=== PATIENT | female | born 1930 | race Caucasian/White ===

== ENCOUNTER → 2016-08-18 | Outpatient (CLI) | payer MEDICARE, OTHER ==
[~2016-08-18] MED LIST: ASPI325T PO; B COTAB7 PO; CALCTAB75 PO; EZET10 PO; FISHCAP4 PO; GNP120TA3 PO; MELA10CA PO; OSTETAB7 PO; OXYC1SOL5 PO; RANI150T PO; STOO100T PO; SYSTSOL EACH EYE; TAB-TAB PO; Z.0.WALKERFRONT; [UNRECOGNIZED DRUG - CODE] TOP
[2016-08-18 15:39] LABS: HEMATOCRIT 41.6 % (35.0-46.0); MEAN CELL VOLUME 88.2 FL (80.0-100.0); MEAN CORPUSCULAR HEMOGLOBIN 29.8 PG (27.0-34.0); MEAN CORPUSCULAR HGB CONC 33.8 % (32.0-36.0); PLATELET COUNT 133 TH/MM3 (150-450); RED BLOOD COUNT 4.72 MIL/MM3 (4.00-5.30); RED CELL DISTRIBUTION WIDTH 14.9 % (11.6-17.2); REVIEW FLAG FINAL; WHITE BLOOD COUNT 5.4 TH/MM3 (4.0-11.0)
[2016-08-18 15:47] LABS: ALT (GPT) 21 U/L (10-53); ANION GAP 8 MEQ/L (5-15); AST (GOT) 13 U/L (15-37); BICARBONATE 27.7 MEQ/L (21.0-32.0); BLOOD UREA NITROGEN 16 MG/DL (7-18); CHLORIDE 108 MEQ/L (98-107); GLOMERULAR FILTRATION RATE 69 ML/MIN (>89); GLUCOSE,FASTING 90 MG/DL (74-99); POTASSIUM 4.4 MEQ/L (3.5-5.1); SODIUM (NA) 144 MEQ/L (136-145)
[2016-08-18 15:57] LABS: ALKALINE PHOSPHATASE 44 U/L (45-117); LDL CHOLESTEROL 59 MG/DL (0-99); TOTAL BILIRUBIN ADULT 0.4 MG/DL (0.2-1.0)
== END ==
LOC: PLAB 12:22
PROVIDERS: ATTEND Family Medicine
DX: E78.5 Hyperlipidemia, unspecified (principal); K21.9 Gastro-esophageal reflux disease without esophagitis; M15.8 Other polyosteoarthritis; G60.9 Hereditary and idiopathic neuropathy, unspecified; D69.6 Thrombocytopenia, unspecified; Z96.651 Presence of right artificial knee joint
CPT/HCPCS: 36415; 80053; 80061; 84443; 85027

== ENCOUNTER → 2016-09-24 | Outpatient (CLI) | payer MEDICARE, OTHER ==
[2016-09-24 16:56] LABS: FREE T4 1.17 NG/DL (0.76-1.46)
== END ==
LOC: PLAB 12:39
DX: E04.2 Nontoxic multinodular goiter (principal)
CPT/HCPCS: 36415; 84439; 84443

== ENCOUNTER → 2016-12-24 | Outpatient (CLI) | payer MEDICARE, OTHER ==
[2016-12-24 13:34] LABS: HEMATOCRIT 44.8 % (35.0-46.0); MEAN CELL VOLUME 91.9 FL (80.0-100.0); MEAN CORPUSCULAR HEMOGLOBIN 30.7 PG (27.0-34.0); MEAN CORPUSCULAR HGB CONC 33.4 % (32.0-36.0); PLATELET COUNT 148 TH/MM3 (150-450); RED BLOOD COUNT 4.87 MIL/MM3 (4.00-5.30); RED CELL DISTRIBUTION WIDTH 14.5 % (11.6-17.2); REVIEW FLAG FINAL; WHITE BLOOD COUNT 5.5 TH/MM3 (4.0-11.0)
[2016-12-24 14:03] LABS: ANION GAP 9 MEQ/L (5-15); AST (GOT) 21 U/L (15-37); BICARBONATE 28.2 MEQ/L (21.0-32.0); BLOOD UREA NITROGEN 15 MG/DL (7-18); CHLORIDE 107 MEQ/L (98-107); GLOMERULAR FILTRATION RATE 67 ML/MIN (>89); GLUCOSE,FASTING 91 MG/DL (74-99); POTASSIUM 4.7 MEQ/L (3.5-5.1); SODIUM (NA) 144 MEQ/L (136-145)
[2016-12-24 14:16] LABS: ALKALINE PHOSPHATASE 49 U/L (45-117); ALT (GPT) 18 U/L (10-53); HDL CHOLESTEROL 51.2 MG/DL (40.0-60.0); LDL CHOLESTEROL 68 MG/DL (0-99); TOTAL BILIRUBIN ADULT 0.5 MG/DL (0.2-1.0)
== END ==
LOC: PLAB 11:06
PROVIDERS: ATTEND Family Medicine
DX: E78.5 Hyperlipidemia, unspecified (principal); K21.9 Gastro-esophageal reflux disease without esophagitis; M15.8 Other polyosteoarthritis; G60.9 Hereditary and idiopathic neuropathy, unspecified; D69.6 Thrombocytopenia, unspecified; Z68.34 Body mass index [BMI] 34.0-34.9, adult
CPT/HCPCS: 36415; 80053; 80061; 84443; 85027

== ENCOUNTER → 2017-05-07 | Outpatient (CLI) | payer MEDICARE, OTHER ==
[2017-05-07 16:29] LABS: HEMATOCRIT 42.9 % (35.0-46.0); MEAN CELL VOLUME 91.6 FL (80.0-100.0); MEAN CORPUSCULAR HEMOGLOBIN 31.6 PG (27.0-34.0); MEAN CORPUSCULAR HGB CONC 34.4 % (32.0-36.0); PLATELET COUNT 141 TH/MM3 (150-450); RED BLOOD COUNT 4.69 MIL/MM3 (4.00-5.30); RED CELL DISTRIBUTION WIDTH 13.8 % (11.6-17.2); REVIEW FLAG FINAL; WHITE BLOOD COUNT 6.2 TH/MM3 (4.0-11.0)
[2017-05-07 16:39] LABS: ANION GAP 4 MEQ/L (5-15); AST (GOT) 20 U/L (15-37); BICARBONATE 30.2 MEQ/L (21.0-32.0); BLOOD UREA NITROGEN 16 MG/DL (7-18); CHLORIDE 106 MEQ/L (98-107); GLOMERULAR FILTRATION RATE 48 ML/MIN (>89); GLUCOSE,FASTING 102 MG/DL (74-99); POTASSIUM 4.4 MEQ/L (3.5-5.1); SODIUM (NA) 140 MEQ/L (136-145)
[2017-05-07 16:51] LABS: ALKALINE PHOSPHATASE 54 U/L (45-117); ALT (GPT) 26 U/L (10-53); HDL CHOLESTEROL 50.7 MG/DL (40.0-60.0); LDL CHOLESTEROL 64 MG/DL (0-99); TOTAL BILIRUBIN ADULT 0.5 MG/DL (0.2-1.0)
== END ==
LOC: PLAB 11:42
PROVIDERS: ATTEND Family Medicine
DX: E78.5 Hyperlipidemia, unspecified (principal); K21.9 Gastro-esophageal reflux disease without esophagitis; M15.8 Other polyosteoarthritis; G60.9 Hereditary and idiopathic neuropathy, unspecified; D69.6 Thrombocytopenia, unspecified; Z68.34 Body mass index [BMI] 34.0-34.9, adult
CPT/HCPCS: 36415; 80053; 80061; 84443; 85027

== ENCOUNTER → 2017-08-27 | Outpatient (CLI) | payer MEDICARE, OTHER ==
[2017-08-27 20:38] LABS: HEMATOCRIT 44.1 % (35.0-46.0); MEAN CELL VOLUME 89.7 FL (80.0-100.0); MEAN CORPUSCULAR HEMOGLOBIN 30.4 PG (27.0-34.0); MEAN CORPUSCULAR HGB CONC 33.9 % (32.0-36.0); MEAN PLATELET VOLUME 9.1 FL (7.0-11.0); PLATELET COUNT 147 TH/MM3 (150-450); RED BLOOD COUNT 4.92 MIL/MM3 (4.00-5.30); RED CELL DISTRIBUTION WIDTH 14.8 % (11.6-17.2); WHITE BLOOD COUNT 5.1 TH/MM3 (4.0-11.0)
[2017-08-27 20:57] LABS: ALBUMIN 3.3 GM/DL (3.4-5.0); AST (GOT) 20 U/L (15-37); BICARBONATE 28.2 MEQ/L (21.0-32.0); BLOOD UREA NITROGEN 14 MG/DL (7-18); CALCIUM 8.9 MG/DL (8.5-10.1); CHLORIDE 107 MEQ/L (98-107); CREATININE 1.03 MG/DL (0.50-1.00); GLOMERULAR FILTRATION RATE 51 ML/MIN (>89); GLUCOSE,FASTING 98 MG/DL (74-99); SODIUM (NA) 143 MEQ/L (136-145)
[2017-08-27 20:58] LABS: CHOLESTEROL 135 MG/DL (120-200)
[2017-08-27 21:09] LABS: ALKALINE PHOSPHATASE 49 U/L (45-117); ALT (GPT) 23 U/L (10-53); CHOLESTEROL/ HDL RATIO 2.74 RATIO; HDL CHOLESTEROL 49.2 MG/DL (40.0-60.0); LDL CHOLESTEROL 63 MG/DL (0-99); TOTAL BILIRUBIN ADULT 0.5 MG/DL (0.2-1.0); TOTAL PROTEIN 6.5 GM/DL (6.4-8.2); TRIGLYCERIDES 114 MG/DL (42-150)
== END ==
LOC: PLAB 13:11
PROVIDERS: ATTEND Family Medicine
DX: E78.5 Hyperlipidemia, unspecified (principal); K21.9 Gastro-esophageal reflux disease without esophagitis; M15.8 Other polyosteoarthritis; G60.9 Hereditary and idiopathic neuropathy, unspecified; D69.6 Thrombocytopenia, unspecified; Z68.35 Body mass index [BMI] 35.0-35.9, adult
CPT/HCPCS: 36415; 80053; 80061; 84443; 85027

== ENCOUNTER → 2017-09-28 | Outpatient (CLI) | payer MEDICARE, OTHER ==
[2017-09-28 14:22] LABS: FREE T4 1.25 NG/DL (0.76-1.46)
== END ==
LOC: PLAB 11:52
DX: E04.2 Nontoxic multinodular goiter (principal); E27.9 Disorder of adrenal gland, unspecified
CPT/HCPCS: 36415; 84439; 84443

== ENCOUNTER 2017-12-08 12:23 | Inpatient (IN) ==
[2017-12-08] MEDS ORDERED: Sod Chloride 0.9% Inj 1,000 ML IV.SIG ONE (13:31)
[2017-12-08 13:41] LABS: Baso % (Auto) 0.4 % (0.0-2.0); Eos % (Auto) 0.4 % (0.0-4.0); Hematocrit 33.8 % (35.0-46.0); Hemoglobin 11.5 gm/dL (11.6-15.3); Lymph # (Auto) 1.1 th/mm3 (1.0-4.8); Mean Corpuscular Hemoglobin 31.4 pg (27.0-34.0); Mean Corpuscular Volume 92.3 fL (80.0-100.0); Mean Platelet Volume 8.6 fL (7.0-11.0); Mono # (Auto) 0.6 th/mm3 (0.0-0.9); Mono % (Auto) 6.3 % (0.0-8.0); Neut # (Auto) 8.2 th/mm3 (1.8-7.7); Neut % (Auto) 81.9 % (16.0-70.0); Platelet Count 231 th/mm3 (150-450); Red Blood Count 3.67 mil/mm3 (4.00-5.30); Red Cell Distribution Width 13.8 % (11.6-17.2)
[2017-12-08 13:54] LABS: Activated Partial Thrombo Time 22.7 sec (24.3-30.1); Prothrombin Time 10.5 sec (9.8-11.6)
--- NOTE | 2017-12-08 14:07 | ED ---
HPI General Chief complaint: GI Bleed Stated complaint: Nausea Time Seen by Provider: 12/08/17 13:13 Source: patient and family Mode of arrival: ambulatory Limitations: no limitations History of Present Illness HPI Narrative: 86-year-old female that presents to the ED for evaluation of possible GI bleed and weakness that started today. Patient is known to me. I actually evaluated this patient last week for GI bleed which ended up being related to acute diverticulitis. Patient states that she has been compliant with her medications. She states that she has been doing well and the only thing she has noticed that she has not had a bowel movement since been discharged from the hospital. She states that she has been doing well until today she started feeling dizzy and weak today. Per patient he feels like the room spinning. She wiped herself today and noted that she had blood in her stool and her paper. She states that she has not had really any bowel movements alert and some gas. No urinary issues. She states that she has been compliant with a 20 buttocks but has not taken it today. Denies any fevers chills or sweats. No chest pain. No shortness of breath. Per patient she tried to see her doctor today but unfortunately cannot see her because he is out of town. Denies any abdominal pain. States that today she has been feeling nauseous as well. Related Data Home Medications Medication Instructions Recorded Confirmed Zetia 10 mg PO DAILY 12/02/17 12/02/17 calcium citrate-vitamin D3 mg PO DAILY 12/02/17 docusate sodium [Stool Softener] 100 mg PO DAILY PRN 12/02/17 12/02/17 ginkgo biloba 120 mg PO DAILY 12/02/17 12/02/17 [id number]-bosw 2 tab PO DAILY 12/02/17 12/02/17 [Osteo Bi-Flex Triple Strength] melatonin 10 mg PO HS PRN 12/02/17 12/02/17 multivitamin [Multiple Vitamins] 1 tab PO DAILY 12/02/17 12/02/17 [id number]-epa-fish oil-D3 [Fish 12/02/17 Oil-Vit D3] peg 400-propylene glycol (PF) 1 drp OPHTHALMIC (EYE) TID PRN 12/02/17 12/02/17 [Systane (PF)] ranitidine HCl 300 mg PO DAILY 12/02/17 12/02/17 terbinafine [Lamisil AT] 1 applic TOPICAL DAILY 12/02/17 12/02/17 vit B1 [id number]-FA [B 12/02/17 Complex w-Vit C] Previous Rx's Medication Instructions Recorded ciprofloxacin HCl [Cipro] 500 mg PO Q12H #20 tab 12/02/17 metronidazole [Flagyl] 500 mg PO Q12H 10 Days #20 tab 12/02/17 ondansetron [Zofran ODT] 4 mg PO Q6H PRN #20 tab 12/02/17 Allergies Allergy/AdvReac Type Severity Reaction Status Date / Time amlodipine Allergy Severe WEAKNESS Verified 12/02/17 12:05 ampicillin Allergy Severe HIVES/ITCHI Verified 12/02/17 12:05 NG atorvastatin Allergy Severe WEAKNESS Verified 12/02/17 12:05 bee venom protein (honey bee) Allergy Severe ANAPHALAXIS Verified 12/02/17 12:05 ibuprofen Allergy Severe Hives Verified 12/02/17 12:05 naproxen Allergy Severe Nausea/Vomi Verified 12/02/17 12:05 ting pravastatin Allergy Severe WEAKNESS Verified 12/02/17 12:05 simvastatin Allergy Severe WEAKNESS Verified 12/02/17 12:05 STATINS Allergy Unknown Hives Uncoded 12/02/17 12:05 Review of Systems ROS Unobtainable All other systems reviewed negative except as stated in HPI [facility] Medical History Medical History Abdominal pain (Acute) Anemia (Acute) Perea esophagus (Acute) Chondromalacia (Acute) GERD (gastroesophageal reflux disease) (Acute) Hypercholesteremia (Acute) Hypotension (Acute) Joint pain (Acute) Obesity (Acute) Surgical History Surgical History History of appendectomy (Acute) History of cholecystectomy (Acute) Social History Social History Substance History: No History of Abuse Second Hand Smoke Exposure: No Smoking Status: Former smoker Tobacco Type: Cigarettes How Often Do You Have a Drink Containing Alcohol: Monthly or less Recent Travel in [facility] within the Last 8 Weeks: No Recent Out of Country Travel within the Last 8 Weeks: No Immunization History Tetanus Immunization: <5 Years Hx Influenza Vaccine This Season: Yes Exam Narrative Exam Narrative: GENERAL: Well-appearing SKIN: Focused skin assessment warm/dry. HEAD: Atraumatic. Normocephalic. EYES: Pupils equal and round 4 mms reactive to light and accommodation. No scleral icterus. No injection or drainage. ENT: No nasal bleeding or discharge. Mucous membranes pink and moist. Tongue is midline. No uvula deviation. NECK: Trachea midline. No JVD. CARDIOVASCULAR: Regular rate and rhythm. No murmur appreciated. RESPIRATORY: No accessory muscle use. Clear to auscultation. Breath sounds equal bilaterally. GASTROINTESTINAL: Abdomen soft, non-tender, nondistended. Hepatic and splenic margins not palpable. MUSCULOSKELETAL: No obvious deformities. No clubbing. No cyanosis. No edema. Full range of motion of the upper and lower extremities bilaterally. 2+ pulses bilaterally. NEUROLOGICAL: Awake and alert. No obvious cranial nerve deficits. Motor grossly within normal limits. Normal speech. PSYCHIATRIC: Appropriate mood and affect; insight and judgment normal. Procedures Hemaprompt Stool Procedural Steps Taken: specimen placed in appropriate test area, developer placed on specimen and control areas and controls appropriately positive and negative Hemaprompt Stool Result: positive Course Initial Documented Vital Signs Temperature 98.9 F 12/08/17 12:30 Pulse Rate 99 H 12/08/17 12:30 Respiratory Rate 12/08/17 12:30 Blood Pressure 113/67 12/08/17 12:30 Pulse Oximetry 97 12/08/17 12:30 Last Documented Vital Signs Temperature 98.9 F 12/08/17 12:30 Pulse Rate 93 H 12/08/17 13:30 Respiratory Rate 12/08/17 13:30 Blood Pressure 120/61 12/08/17 13:30 Pulse Oximetry 95 12/08/17 13:30 Medical Decision Making RICKEY Attestation RICKEY supervised visit: Yes Attestation: I, Dr. Maravilla, have reviewed the advance practice practitioner's documentation and am in agreement, met with the patient face to face, made the diagnosis, and the medical decision making was done by me. *My assessment and Findings: Patient seen and evaluated with PA, please see TONY Goddard's note for further details. She is coming in with abdominal discomfort, ongoing nausea, vomiting, not feeling well despite treatment with Cipro and Flagyl for diverticulitis. Abdomen is fairly nontender, but she is mildly tachycardic and her blood pressures are low in the ER. She was given IV fluids in the ER. Initial CAT scan did not show any signs of acute intra-abdominal processes. Hemoccult is positive and there may be some underlying GI bleed. However, on reevaluation after IV fluids, and attempted orthostatic vital signs were done and she became fairly symptomatic, was not feeling right, and had what appeared to have been a syncopal episode with possible seizure-like activity in the ER. At this point, my plan would be to admit her for further evaluation and observation. Case was discussed with Dr. Moise for admission. [facility] Narrative Medical decision making narrative: 86-year-old female that presents to the ED for evaluation of weakness. Patient was properly examined and was found to have signs and symptoms of unclear etiology. Patient is known to me as I evaluate her a week ago. She states that she feels nauseous and has not had a bowel movement since being discharged from here. She did change her diet as she feels that she had lost her appetite since infection started. At this time labs and imaging will be ordered. Patient did bring paper towels were she wiped herself that show blood as well as what appears to be dark stool. Hemoccult was done from this and was positive. Patient will start IV fluids. Given Reglan. Labs and imaging showed Differential Diagnosis Differential Diagnosis: Acute diverticulitis versus GI bleed versus weakness versus dizziness versus [facility] Medical Records Medical records reviewed: Yes I reviewed the patient's medical records. Lab Data Lab results reviewed: Yes I reviewed the patient's lab results. Result diagrams: 12/08/17 13:26 12/08/17 13:26 Lab Results 12/08/17 12/08/17 12/08/17 Range/Units 13:26 13:26 13:26 WBC 10.0 (4.0-11.0) th/mm3 RBC 3.67 L (4.00-5.30) mil/mm3 Hgb 11.5 L (11.6-15.3) gm/dL Hct 33.8 L (35.0-46.0) % MCV 92.3 (80.0-100.0) fL MCH 31.4 (27.0-34.0) pg MCHC 34.0 (32.0-36.0) % RDW 13.8 (11.6-17.2) % Plt Count 231 D (150-450) th/mm3 MPV 8.6 (7.0-11.0) fL Neut % (Auto) 81.9 H (16.0-70.0) % Lymph % (Auto) 11.0 (9.0-44.0) % [place] % (Auto) 6.3 (0.0-8.0) % Eos % (Auto) 0.4 (0.0-4.0) % Baso % (Auto) 0.4 (0.0-2.0) % Neut # (Auto) 8.2 H (1.8-7.7) th/mm3 Lymph # (Auto) 1.1 (1.0-4.8) th/mm3 [place] # (Auto) 0.6 (0.0-0.9) th/mm3 Eos # (Auto) 0.0 (0.0-0.4) th/mm3 Baso # (Auto) 0.0 (0.0-0.2) th/mm3 WBC Differential . Differential Comment Auto diff final PT 10.5 (9.8-11.6) sec INR 1.0 Ratio APTT 22.7 L (24.3-30.1) sec Sodium 143 (136-145) meq/L Potassium 5.3 H (3.5-5.1) meq/L Chloride 109 H (98-107) meq/L Carbon Dioxide 27.8 (21.0-32.0) meq/L Anion Gap 6 (5-15) meq/L BUN 25 H (7-18) mg/dL Creatinine 1.00 (0.50-1.00) mg/dL Estimated GFR 53 L (>89) mL/min Random Glucose 125 H (74-106) mg/dL Calcium 8.2 L (8.5-10.1) mg/dL Magnesium 1.8 (1.5-2.5) mg/dL Total Bilirubin 0.3 (0.2-1.0) mg/dL AST 48 H (15-37) U/L ALT 34 (10-53) U/L Alkaline Phosphatase 39 L (45-117) U/L Troponin I (0.02-0.05) ng/mL Total Protein 5.7 L (6.4-8.2) g/dL Albumin 2.7 L (3.4-5.0) g/dL Lipase 86 (73-393) U/L Blood Type Blood Type Recheck Antibody Screen 12/08/17 12/08/17 Range/Units 13:26 13:26 WBC (4.0-11.0) th/mm3 RBC (4.00-5.30) mil/mm3 Hgb (11.6-15.3) gm/dL Hct (35.0-46.0) % MCV (80.0-100.0) fL MCH (27.0-34.0) pg MCHC (32.0-36.0) % RDW (11.6-17.2) % Plt Count (150-450) th/mm3 MPV (7.0-11.0) fL Neut % (Auto) (16.0-70.0) % Lymph % (Auto) (9.0-44.0) % [place] % (Auto) (0.0-8.0) % Eos % (Auto) (0.0-4.0) % Baso % (Auto) (0.0-2.0) % Neut # (Auto) (1.8-7.7) th/mm3 Lymph # (Auto) (1.0-4.8) th/mm3 [place] # (Auto) (0.0-0.9) th/mm3 Eos # (Auto) (0.0-0.4) th/mm3 Baso # (Auto) (0.0-0.2) th/mm3 WBC Differential Differential Comment PT (9.8-11.6) sec INR Ratio APTT (24.3-30.1) sec Sodium (136-145) meq/L Potassium (3.5-5.1) meq/L Chloride (98-107) meq/L Carbon Dioxide (21.0-32.0) meq/L Anion Gap (5-15) meq/L BUN (7-18) mg/dL Creatinine (0.50-1.00) mg/dL Estimated GFR (>89) mL/min Random Glucose (74-106) mg/dL Calcium (8.5-10.1) mg/dL Magnesium (1.5-2.5) mg/dL Total Bilirubin (0.2-1.0) mg/dL AST (15-37) U/L ALT (10-53) U/L Alkaline Phosphatase (45-117) U/L Troponin I Less than 0.02 L (0.02-0.05) ng/mL Total Protein (6.4-8.2) g/dL Albumin (3.4-5.0) g/dL Lipase (73-393) U/L Blood Type A Positive Blood Type Recheck Not needed Antibody Screen Negative Imaging Data Radiologist's impression: ITS Impressions Abdomen/Pelvis CT 12/08/17 13:23 CONCLUSION: 1. Resolution of the previously seen inflammatory change within the small bowel. 2. Constipation. 3. 3 cm left adrenal gland nodule. CT characteristics are not consistent with a benign adenoma on this limited study. MRI could be utilized to further assess. Discharge Plan Discharge Disposition Patient Disposition: 30 Still Patient Discharge Condition Condition: Fair Discharge Details Anticipated Discharge Date: 12/08/17 Diagnosis: Hematochezia, Syncope Physicians Team ED Provider: Husam Maravilla ED Midlevel Provider: Toribio Goddard Primary Care Provider: Alicia Urias Rxs /Orders / Referrals /Forms Prescriptions: No Action Zetia 10 mg PO DAILY RF: 0 calcium citrate-vitamin D3 500 mg calcium -400 unit Tablet,Chewable PO DAILY RF: 0 multivitamin [Multiple Vitamins] Tablet 1 tab PO DAILY RF: 0 ranitidine HCl 300 mg Tablet 300 mg PO DAILY RF: 0 docusate sodium [Stool Softener] 100 mg Capsule 100 mg PO DAILY PRN (Reason: Constipation) RF: 0 ginkgo biloba 120 mg Tablet 120 mg PO DAILY RF: 0 peg 400-propylene glycol (PF) [Systane (PF)] 0.4-0.3 % Dropperette 1 drp OPHTHALMIC (EYE) TID PRN (Reason: Dry Eyes) RF: 0 terbinafine [Lamisil AT] 1 % Gel 1 applic TOPICAL DAILY RF: 0 vit B1 [id number]-C-FA [B Complex w-Vit C] 01-42-01-5-250 mg Tablet RF: 0 melatonin 10 mg Capsule 10 mg PO HS PRN (Reason: Insomnia) RF: 0 rgdkr-1u-xez-epa-fish oil-D3 [Fish Oil-Vit D3] 360 mg-1,200 mg -1,000 unit Capsule RF: 0 xdquxsya-tmms-ntt5-C-jamila-bosw [Osteo Bi-Flex Triple Strength] 750 mg-644 mg- 30 mg-1 mg Tablet 2 tab PO DAILY RF: 0 metronidazole [Flagyl] 500 mg tablet 500 mg PO Q12H 10 Days Qty: 20 RF: 0 ciprofloxacin HCl [Cipro] 500 mg tablet 500 mg PO Q12H Qty: 20 RF: 0 ondansetron [Zofran ODT] 4 mg tablet,disintegrating 4 mg PO Q6H PRN (Reason: nausea and vomiting) Qty: 20 RF: 0 Referrals: Alicia Urias MD [Primary Care Provider] - See Instructions Discharge Interventions Interventions: Vital Signs Last Done: 12/08/17 13:30 Status ED Status: With Doctor
[2017-12-08 14:11] LABS: Alanine Aminotransferase 34 U/L (10-53); Alkaline Phosphatase 39 U/L (45-117); Total Protein 5.7 g/dL (6.4-8.2)
[2017-12-08 14:16] LABS: Albumin 2.7 g/dL (3.4-5.0); Anion Gap 6 meq/L (5-15); Aspartate Aminotransferase 48 U/L (15-37); Blood Urea Nitrogen 25 mg/dL (7-18); Calcium 8.2 mg/dL (8.5-10.1); Carbon Dioxide 27.8 meq/L (21.0-32.0); Chloride 109 meq/L (98-107); Glomerular Filtration Rate 53 mL/min (>89); Glucose,Random 125 mg/dL (74-106); Lipase 86 U/L (73-393); Magnesium 1.8 mg/dL (1.5-2.5); Sodium 143 meq/L (136-145)
[2017-12-08 14:26] LABS: Potassium 5.3 meq/L (3.5-5.1)
--- NOTE | 2017-12-08 15:51 | CT ---
EXAM DATE: 12/08/2017 3:31 PM EDT AGE/SEX: 86 years / Female INDICATIONS: Constipation CLINICAL DATA: This is the patient's initial encounter. Patient reports that signs and symptoms have been present for 1 day and indicates a pain score of 0/10. MEDICAL/SURGICAL HISTORY: Anemia. Gastroesophageal reflux disease. None. ORAL CONTRAST: No oral contrast ingested. RADIATION DOSE: 9.97 CTDI (mGy) [place]PAR[place] [facility] [place] 12/02/2017. . TECHNIQUE: Multiple contiguous axial images were obtained through the abdomen and pelvis following b olus infusion of 96 ml Omnipaque 350 (iohexol) nonionic water-soluble contrast as a single exam dos e. No oral contrast ingested. Using automated exposure control and adjustment of the mA and/or kV ac cording to patient size, radiation dose was kept as low as reasonably achievable to obtain optimal di agnostic quality images. DICOM format image data is available electronically for review and comparis on. FINDINGS: Lower Lungs: Tiny hiatal hernia. The visualized lower lungs are clear. Liver: The liver has a homogeneous density. Multiple hepatic cysts again seen. The largest involves s egment 4 measures 4.8 cm. There is no dilation of the biliary tree. Prior cholecystectomy. Spleen: Homogeneous density without enlargement. Pancreas: Unremarkable without mass or calcification. Kidneys: Normal in size and shape. No evidence of mass or hydronephrosis. Adrenal Glands: 3 cm left adrenal gland nodule. Hounsfield units are 60. Right adrenal gland is nor mal.. Aorta: The aorta and proximal iliac vessels are grossly unremarkable without aneurysmal dilation. Bowel/Mesentery: The inflammatory change previously seen within the proximal small bowel is no longe r evident. No inflammatory change involving the small bowel or large bowel observed. A significant st ool burden is noted throughout a normal caliber colon. Scattered colonic diverticuli and small bowel diverticuli. No free air or free fluid. Abdominal Wall: Intact. Retroperitoneum: No evidence of adenopathy in the retrocrural, para-aortic, or deep pelvic regions. Bladder: Contours are smooth. Reproductive Organs: No abnormal masses or calcifications seen. Inguinal: The inguinal region is unremarkable without evidence of adenopathy. Bony Structures: Unremarkable. CONCLUSION: 1. Resolution of the previously seen inflammatory change within the small bowel. 2. Constipation. 3. 3 cm left adrenal gland nodule. CT characteristics are not consistent with a benign adenoma on th is limited study. MRI could be utilized to further assess. Electronically signed by: Jacob Forde MD 12/08/2017 3:49 PM EDT
[2017-12-08] MEDS ORDERED: Pantoprazole Inj 40 MG Vial IV.PUSH ONE (16:09)
[2017-12-08] MEDS ORDERED: Acetaminophen 325 MG Tablet PO PRN (16:37)
--- NOTE | 2017-12-08 17:41 | ECG ---
Date Performed: 12/08/2017 Time Performed: 13:40:57 PTAGE: 86 years EKG: Sinus rhythm WITH MARKED SINUS ARRHYTHMIA PROBABLE INFERIOR MYOCARDIAL INFARCTION ABNORMAL ECG Compared to prior electrocardiogram, Criteria for inferior NM are more prominent and premature atrial contractions are no longer present. DOCTOR: Cole Lyles Interpretating Date/Time 12/08/2017 17:39:45
[2017-12-08] MEDS: Sod Chloride 0.9% Inj 1,000 ML IV.CONT SCH (17:45)
--- NOTE | 2017-12-08 18:33 | P.HP ---
History of Present Illness Primary Care Physician: Alicia Urias MD Chief Complaint: I felt dizzy and almost passed out History of Present Illness: 86-year-old female who was recently diagnosed with diverticulitis and prescribed Cipro and Flagyl December 02, 2017 return to the ED today for evaluation of an acute onset of dizziness as well as near syncopal episode. Patient also states, during transport to the ED as she wiped herself after a BM, she noted bright red blood. However in the ED, patient H&H remained stable. Patient states when she first came to the ED back December 02, 2017 she had bright red blood per rectum but was sent home after 4 hours in the emergency department. Her last colonoscopy was 6 months ago and she was advised for a repeat in 3 years. While in the ED, patient was found to have orthostatic BP. She complained of nausea without any emesis. She denies any chest pain or significant shortness of breath. - Diagnosis (1) Orthostatic dizziness (2) Syncope Inpatient Certification: I certify that the inpatient services were ordered in accordance with Medicare regulations governing the order. This includes certification that hospital inpatient services are reasonable and necessary and in the case of services not specified as inpatient-only under 42 CFR 419.22(n), that they are appropriately provided as inpatient services in accordance to with the 2-midnight benchmark under 43 CFR 412.3(e) Review of Systems All other systems reviewed negative except as stated in HPI PMFSH - History History Provided By: Patient - Medical History Medical History: Medical History (Last Reviewed 12/08/17 @ 14:03 by TONY Chappell) Abdominal pain Anemia Perea esophagus Chondromalacia GERD (gastroesophageal reflux disease) Hypercholesteremia Hypotension Joint pain Obesity - Surgical History Surgical History: Surgical History (Last Reviewed 12/08/17 @ 14:03 by TONY Chappell) History of appendectomy History of cholecystectomy - Tobacco History Second Hand Smoke Exposure: No Smoking Status: Former smoker Tobacco Type: Cigarettes - Alcohol History How Often Do You Have a Drink Containing Alcohol: Monthly or less - Substance Use History Substance History: No History of Abuse - Travel History Recent Travel in the [place] Within the Last 8 Weeks: No Recent Travel Out of the Country Within the Last 8 Weeks: No - Immunization History Tetanus Immunization: <5 Years Hx Influenza Vaccine This Season: Yes Medications and Allergies Active Medications: Active Medications Acetaminophen (Tylenol) 650 mg PO Q4H PRN PRN Reason: Temp > 100.4 Al Hydroxide/Mg Hydroxide (Milk Of Magnnoé Liq) 30 ml PO Q12H PRN PRN Reason: Mild Constipation Ciprofloxacin HCl (Cipro) 500 mg PO Q12HR [facility] Sodium Chloride (Ns Inj) 1,000 mls @ 100 mls/hr IV.CONT .Q10H PAMELLA Last Admin: 12/08/17 17:45 Dose: 100 mls/hr Metronidazole (Flagyl) 500 mg PO Q8HR PAMELLA Ondansetron HCl (Zofran Inj) 4 mg IV.PUSH Q6H PRN PRN Reason: NAUSEA OR VOMITING Sodium Chloride (Ns Flush) 2 ml IV.FLUSH PRN PRN PRN Reason: FLUSH AFTER USING IV ACCESS Allergies Allergy/AdvReac Type Severity Reaction Status Date / Time amlodipine Allergy Severe WEAKNESS Verified 12/02/17 12:05 ampicillin Allergy Severe HIVES/ITCHI Verified 12/02/17 12:05 NG atorvastatin Allergy Severe WEAKNESS Verified 12/02/17 12:05 bee venom protein (honey bee) Allergy Severe ANAPHALAXIS Verified 12/02/17 12:05 ibuprofen Allergy Severe Hives Verified 12/02/17 12:05 naproxen Allergy Severe Nausea/Vomi Verified 12/02/17 12:05 ting pravastatin Allergy Severe WEAKNESS Verified 12/02/17 12:05 simvastatin Allergy Severe WEAKNESS Verified 12/02/17 12:05 STATINS Allergy Unknown Hives Uncoded 12/02/17 12:05 Home Medications Medication Instructions Recorded Confirmed Type Zetia 10 mg PO DAILY 12/02/17 12/02/17 History calcium citrate-vitamin D3 mg PO DAILY 12/02/17 History docusate sodium [Stool Softener] 100 mg PO DAILY PRN 12/02/17 12/02/17 History ginkgo biloba 120 mg PO DAILY 12/02/17 12/02/17 History [id number]-[id number] 2 tab PO DAILY 12/02/17 12/02/17 History [Osteo Bi-Flex Triple Strength] melatonin 10 mg PO HS PRN 12/02/17 12/02/17 History multivitamin [Multiple Vitamins] 1 tab PO DAILY 12/02/17 12/02/17 History [id number]-fish oil-D3 [Fish 12/02/17 History Oil-Vit D3] peg 400-propylene glycol (PF) 1 drp OPHTHALMIC (EYE) TID PRN 12/02/17 12/02/17 History [Systane (PF)] ranitidine HCl 300 mg PO DAILY 12/02/17 12/02/17 History terbinafine [Lamisil AT] 1 applic TOPICAL DAILY 12/02/17 12/02/17 History vit B1 [id number] [B 12/02/17 History Complex w-Vit C] Exam Vital signs: Vital Signs 12/08/17 12:30 12/08/17 13:30 12/08/17 17:00 Temperature 98.9 F Pulse Rate 99 H 93 H 95 H Respiratory Rate 18 18 14 Blood Pressure 113/67 120/61 135/70 Pulse Oximetry 97 95 98 Intake & Output 12/07/17 12/08/17 12/08/17 18:59 06:59 18:59 Weight 90.718 kg Narrative: GENERAL: NAD SKIN: Warm and dry. HEAD: Atraumatic. Normocephalic. EYES: Pupils equal and round. No scleral icterus. No injection or drainage. ENT: No nasal bleeding or discharge. Mucous membranes pink and moist. NECK: Trachea midline. No JVD. CARDIOVASCULAR: Regular rate and rhythm. RESPIRATORY: No accessory muscle use. Clear to auscultation. Breath sounds equal bilaterally. GASTROINTESTINAL: Abdomen soft, non-tender, nondistended. Hepatic and splenic margins not palpable. MUSCULOSKELETAL: Extremities without clubbing, cyanosis, or edema. No obvious deformities. NEUROLOGICAL: Awake and alert. No obvious cranial nerve deficits. Motor grossly within normal limits. Five out of 5 muscle strength in the arms and legs. Normal speech. PSYCHIATRIC: Appropriate mood and affect; insight and judgment normal. Results - Labs CBC & Chem 7: 12/08/17 13:26 12/08/17 13:26 Labs: Laboratory Results - last 24 hr 12/08/17 12/08/17 12/08/17 13:26 13:26 13:26 WBC 10.0 RBC 3.67 L Hgb 11.5 L Hct 33.8 L MCV 92.3 MCH 31.4 MCHC 34.0 RDW 13.8 Plt Count 231 D MPV 8.6 Neut % (Auto) 81.9 H Lymph % (Auto) 11.0 [place] % (Auto) 6.3 Eos % (Auto) 0.4 Baso % (Auto) 0.4 Neut # (Auto) 8.2 H Lymph # (Auto) 1.1 [place] # (Auto) 0.6 Eos # (Auto) 0.0 Baso # (Auto) 0.0 WBC Differential . Differential Comment Auto diff final PT 10.5 INR 1.0 APTT 22.7 L Sodium 143 Potassium 5.3 H Chloride 109 H Carbon Dioxide 27.8 Anion Gap 6 BUN 25 H Creatinine 1.00 Estimated GFR 53 L Random Glucose 125 H Calcium 8.2 L Magnesium 1.8 Total Bilirubin 0.3 AST 48 H ALT 34 Alkaline Phosphatase 39 L Troponin I Total Protein 5.7 L Albumin 2.7 L Lipase 86 Blood Type Blood Type Recheck Antibody Screen 12/08/17 12/08/17 13:26 13:26 WBC RBC Hgb Hct MCV MCH MCHC RDW Plt Count MPV Neut % (Auto) Lymph % (Auto) [place] % (Auto) Eos % (Auto) Baso % (Auto) Neut # (Auto) Lymph # (Auto) [place] # (Auto) Eos # (Auto) Baso # (Auto) WBC Differential Differential Comment PT INR APTT Sodium Potassium Chloride Carbon Dioxide Anion Gap BUN Creatinine Estimated GFR Random Glucose Calcium Magnesium Total Bilirubin AST ALT Alkaline Phosphatase Troponin I Less than 0.02 L Total Protein Albumin Lipase Blood Type A Positive Blood Type Recheck Not needed Antibody Screen Negative - Imaging Impressions Abdomen/Pelvis CT 12/08/17 13:23 CONCLUSION: 1. Resolution of the previously seen inflammatory change within the small bowel. 2. Constipation. 3. 3 cm left adrenal gland nodule. CT characteristics are not consistent with a benign adenoma on this limited study. MRI could be utilized to further assess. Caprini VTE Risk Assessment Caprini VTE Risk Assessment: Moderate/High Risk (score >= 2) Caprini Risk Assessment Model: Point Value = 1 Point Value = 2 Point Value = 3 Point Value = 5 Age 41-60 Minor surgery BMI > 25 kg/m2 Swollen legs Varicose veins or History of unexplained or recurrent spontaneous Oral contraceptives or hormone replacement Sepsis (< 1 month) Serious lung disease, including pneumonia (< 1 month) Abnormal pulmonary function Acute myocardial infarction Congestive heart failure (< 1 month) History of inflammatory bowel disease Medical patient at bed rest Age 61-74 Arthroscopic surgery Major open surgery (> 45 min) Laparoscopic surgery (> 45 min) Malignancy Confined to bed (> 72 hours) Immobilizing plaster cast Central venous access Age >= 75 History of VTE Family history of VTE Factor V Leiden Prothrombin [id number] Lupus anticoagulant Anticardiolipin antibodies Elevated serum homocysteine Heparin-induced thrombocytopenia Other congenital or acquired thrombophilia Stroke (< 1 month) Elective arthroplasty Hip, pelvis, or leg fracture Acute spinal cord injury (< 1 month) Prophylaxis Regimen: Total Risk Factor Score Risk Level Prophylaxis Regimen 0-1 Low Early ambulation 2 Moderate Order ONE of the following: *Sequential Compression Device (SCD) *Heparin 5000 units SQ BID 3-4 Higher Order ONE of the following medications: *Heparin 5000 units SQ TID *Enoxaparin/Lovenox 40 mg SQ daily (WT < 150 kg, CrCl > 30 mL/min) *Enoxaparin/Lovenox 30 mg SQ daily (WT < 150 kg, CrCl > 10-29 mL/min) *Enoxaparin/Lovenox 30 mg SQ BID (WT < 150 kg, CrCl > 30 mL/min) AND/OR *Sequential Compression Device (SCD) 5 or more Highest Order ONE of the following medications: *Heparin 5000 units SQ TID (Preferred with Epidurals) *Enoxaparin/Lovenox 40 mg SQ daily (WT < 150 kg, CrCl > 30 mL/min) *Enoxaparin/Lovenox 30 mg SQ daily (WT < 150 kg, CrCl > 10-29 mL/min) *Enoxaparin/Lovenox 30 mg SQ BID (WT < 150 kg, CrCl > 30 mL/min) AND *Sequential Compression Device (SCD) Assessment and Plan - Assessment (1) Orthostatic dizziness Code(s): R42 - Dizziness and giddiness Status: Acute (2) Syncope Code(s): R55 - Syncope and collapse Status: Acute - Plan 86-year-old female with Near syncopal episode Orthostatic dizziness CT head noted and reviewed by me without any intracranial bleed H&H appears stable Will continue with orthostatic BP monitoring PT consult to treat and eval in a.m. Recent diagnosis of diverticulitis Resume Cipro and Flagyl Normochromic normocytic anemia Continue to monitor H&H Patient can follow outpatient with GI if hemoglobin remains stable 3 cm left adrenal gland nodule per head CT Patient to follow outpatient with brain MRI Hyperkalemia Likely hemolysis, repeat BMP in a.m. and treat accordingly DVT prophylaxis Bilateral SCDs (2) Syncope Qualifiers: Syncope type: unspecified Qualified Code(s): R55 - Syncope and collapse
[2017-12-08] MEDS: metroNIDAZOLE 500 MG Tablet PO SCH (22:09)
[2017-12-08] MEDS: Ciprofloxacin 500 MG Tablet PO SCH (22:11)
[2017-12-09] MEDS: Sod Chloride 0.9% Inj 1,000 ML IV.CONT SCH ×2 (03:01→12:55)
[2017-12-09] MEDS: metroNIDAZOLE 500 MG Tablet PO SCH ×3 (05:18→21:44)
[2017-12-09 08:31] LABS: Baso % (Auto) 0.5 % (0.0-2.0); Eos % (Auto) 0.4 % (0.0-4.0); Hematocrit 22.5 % (35.0-46.0); Hemoglobin 7.7 gm/dL (11.6-15.3); Lymph # (Auto) 1.5 th/mm3 (1.0-4.8); Lymph % (Auto) 18.3 % (9.0-44.0); Mean Corpuscular HGB Conc 34.3 % (32.0-36.0); Mean Corpuscular Hemoglobin 31.7 pg (27.0-34.0); Mean Corpuscular Volume 92.3 fL (80.0-100.0); Mean Platelet Volume 8.2 fL (7.0-11.0); Mono # (Auto) 0.4 th/mm3 (0.0-0.9); Mono % (Auto) 5.2 % (0.0-8.0); Neut # (Auto) 6.1 th/mm3 (1.8-7.7); Neut % (Auto) 75.6 % (16.0-70.0); Platelet Count 183 th/mm3 (150-450); Red Blood Count 2.44 mil/mm3 (4.00-5.30); Red Cell Distribution Width 14.1 % (11.6-17.2)
[2017-12-09 09:33] LABS: Calcium 7.5 mg/dL (8.5-10.1); Carbon Dioxide 25.7 meq/L (21.0-32.0); Potassium 4.4 meq/L (3.5-5.1)
[2017-12-09] MEDS: Ciprofloxacin 500 MG Tablet PO SCH ×2 (10:58→21:42)
--- NOTE | 2017-12-09 12:07 | P.CONGI ---
Addendum entered and electronically signed by Pauline Herrmann 12/09/17 14:06: Checked with nursing approximately 2 hours after her admission and patient has begun to have melena stools. This is possibly due to an upper GI bleed, ulcers , inflammation, Will plan for EGD in a.m. Original Note: History of Present Illness Consult date: 12/09/17 Consult reason: GI bleeding bright red, constipation Chief complaint: acute syncope, GI bleed History of Present Illness: This is an elderly obese female who presented to the emergency room on 2017 with extreme weakness and dizziness. Patient had just recently been discharged from the hospital and treated for diverticulitis and currently on Cipro and Flagyl. Patient states after going home she suffered from some constipation with no bowel movement for at least a week and had increased periods of straining while trying to have a bowel movement. Patient did note hard table formed stool with small amounts of blood noted that she brought to the hospital in a bag for viewing. Patient also had symptoms of nausea but no vomiting and no abdominal pain. Onset of all her symptoms were approximately 1 week and continue to worsen with her weakness and fatigue. Hemoglobin on admission was 11 5 and this a.m noted to be 7.7. PT/INR 1, normal bilirubin AST T [address] scan was done on this admission which showed constipation, resolution of her diverticulitis and left adrenal nodule. Currently patient was awake answering simple questions in a fairly good historian. Patient notes history of multiple hemorrhoids. <Pauline Herrmann - Last Filed: 12/09/17 12:07> Review of Systems All other systems reviewed negative except as stated in HPI <Pauline Herrmann - Last Filed: 12/09/17 12:07> PMFSH - History History Provided By: Patient - Medical History Medical History: Medical History (Last Reviewed 12/09/17 @ 08:47 by Kulwinder Barriga) Abdominal pain Anemia [place] esophagus Chondromalacia GERD (gastroesophageal reflux disease) Hypercholesteremia Hypotension Joint pain Obesity - Surgical History Surgical History: Surgical History (Last Reviewed 12/09/17 @ 08:47 by Kulwinder Barriga) History of appendectomy History of cholecystectomy - Tobacco History Second Hand Smoke Exposure: No Tobacco Use In Past 30 Days: No Smoking Status: Former smoker Tobacco Type: Cigarettes - Alcohol History How Often Do You Have a Drink Containing Alcohol: Monthly or less - Substance Use History Substance History: No History of Abuse - Travel History Recent Travel in the [place] Within the Last 8 Weeks: No Recent Travel Out of the Country Within the Last 8 Weeks: No - Immunization History Tetanus Immunization: <5 Years Hx Influenza Vaccine This Season: Yes <Pauline Herrmann - Last Filed: 12/09/17 12:07> - Medical History Medical History: Medical History (Last Reviewed 12/09/17 @ 08:47 by Kulwinder Barriga) Abdominal pain Anemia [place] esophagus Chondromalacia GERD (gastroesophageal reflux disease) Hypercholesteremia Hypotension Joint pain Obesity - Surgical History Surgical History: Surgical History (Last Reviewed 12/09/17 @ 08:47 by Kulwinder Barriga) History of appendectomy History of cholecystectomy <Rivera Palmer - Last Filed: 12/09/17 14:30> Medications and Allergies Active Medications: Active Medications Acetaminophen (Tylenol) 650 mg PO Q4H PRN PRN Reason: Temp > 100.4 Al Hydroxide/Mg Hydroxide (Milk Of Magnesia Liq) 30 ml PO Q12H PRN PRN Reason: Mild Constipation Ciprofloxacin HCl (Cipro) 500 mg PO Q12HR [facility] Last Admin: 12/09/17 10:58 Dose: 500 mg Sodium Chloride (Ns Inj) 1,000 mls @ 100 mls/hr IV.CONT .Q10H [facility] Last Admin: 12/09/17 03:01 Dose: 100 mls/hr Metronidazole (Flagyl) 500 mg PO Q8HR [facility] Last Admin: 12/09/17 05:18 Dose: 500 mg Prochlorperazine Edisylate (Compazine Inj) 5 mg IV.PUSH Q4H PRN PRN Reason: NAUSEA OR VOMITING Last Admin: 12/08/17 22:09 Dose: 5 mg Sodium Chloride (Ns Flush) 2 ml IV.FLUSH PRN PRN PRN Reason: FLUSH AFTER USING IV ACCESS <Pauline Herrmann - Last Filed: 12/09/17 12:07> Active Medications: Active Medications Acetaminophen (Tylenol) 650 mg PO Q4H PRN PRN Reason: Temp > 100.4 Al Hydroxide/Mg Hydroxide (Milk Of Magnesia Liq) 30 ml PO Q12H PRN PRN Reason: Mild Constipation Ciprofloxacin HCl (Cipro) 500 mg PO Q12HR [facility] Last Admin: 12/09/17 10:58 Dose: 500 mg Sodium Chloride (Ns Inj) 1,000 mls @ 100 mls/hr IV.CONT .Q10H [facility] Last Admin: 12/09/17 12:55 Dose: 100 mls/hr Sodium Chloride (Ns Inj) 250 mls @ 15 mls/hr IV.SIG ONCE [facility] Stop: 12/10/17 07:39 Metronidazole (Flagyl) 500 mg PO Q8HR [facility] Last Admin: 12/09/17 05:18 Dose: 500 mg Pantoprazole Sodium (Protonix Inj) 40 mg IV.PUSH Q12HR [facility] Prochlorperazine Edisylate (Compazine Inj) 5 mg IV.PUSH Q4H PRN PRN Reason: NAUSEA OR VOMITING Last Admin: 12/08/17 22:09 Dose: 5 mg Sodium Chloride (Ns Flush) 2 ml IV.FLUSH PRN PRN PRN Reason: FLUSH AFTER USING IV ACCESS <Rivera Palmer A - Last Filed: 12/09/17 14:30> Allergies Allergy/AdvReac Type Severity Reaction Status Date / Time amlodipine Allergy Severe WEAKNESS Verified 12/02/17 12:05 ampicillin Allergy Severe HIVES/ITCHI Verified 12/02/17 12:05 NG atorvastatin Allergy Severe WEAKNESS Verified 12/02/17 12:05 bee venom protein (honey bee) Allergy Severe ANAPHALAXIS Verified 12/02/17 12:05 ibuprofen Allergy Severe Hives Verified 12/02/17 12:05 naproxen Allergy Severe Nausea/Vomi Verified 12/02/17 12:05 ting pravastatin Allergy Severe WEAKNESS Verified 12/02/17 12:05 simvastatin Allergy Severe WEAKNESS Verified 12/02/17 12:05 STATINS Allergy Unknown Hives Uncoded 12/02/17 12:05 Home Medications Medication Instructions Recorded Confirmed Type calcium citrate-vitamin D3 1 tab PO DAILY 12/02/17 12/08/17 History docusate sodium [Stool Softener] 100 mg PO DAILY PRN 12/02/17 12/08/17 History ezetimibe [Zetia] 10 mg PO DAILY 12/02/17 12/08/17 History ginkgo biloba 120 mg PO DAILY 12/02/17 12/08/17 History pfarlxih-[id number]-bosw 2 tab PO DAILY 12/02/17 12/08/17 History [Osteo Bi-Flex Triple Strength] melatonin 10 mg PO HS PRN 12/02/17 12/08/17 History multivitamin [Multiple Vitamins] 1 tab PO DAILY 12/02/17 12/08/17 History [id number]-epa-fish oil-D3 [Fish 1 cap PO DAILY 12/02/17 12/08/17 History Oil-Vit D3] peg 400-propylene glycol (PF) 1 drp OPHTHALMIC (EYE) TID PRN 12/02/17 12/08/17 History [Systane (PF)] ranitidine HCl [Zantac] 300 mg PO DAILY 12/02/17 12/08/17 History terbinafine [Lamisil AT] 1 applic TOPICAL DAILY 12/02/17 12/08/17 History vit B1 [id number] [B 1 tab PO DAILY 12/02/17 12/08/17 History Complex w-Vit C] Exam Vital signs: Vital Signs 12/08/17 12:30 12/08/17 13:30 12/08/17 17:00 Temperature 98.9 F Pulse Rate 99 H 93 H 95 H Respiratory Rate 18 18 14 Blood Pressure 113/67 120/61 135/70 Pulse Oximetry 97 95 98 12/08/17 19:06 12/08/17 23:17 12/09/17 04:00 Temperature 96.1 F L 98.6 F 98.1 F Pulse Rate 93 H 101 H 97 H Respiratory Rate 20 16 15 Blood Pressure 92/51 L 95/53 L Pulse Oximetry 97 98 96 12/09/17 08:00 Temperature 98.4 F Pulse Rate 88 Respiratory Rate 16 Blood Pressure 129/60 Pulse Oximetry 98 Intake & Output 12/08/17 12/09/17 12/09/17 18:59 06:59 18:59 Intake Total 1999 Balance 1999 Weight 90.718 kg Intake: IV 1999 NS Inj 1,000 ML @ 100 mls/hr IV 1000 / 1000 .CONT .Q10H [facility] Rx#:[id number] NS Inj 1,000 ML @ Wide Open IV. 1000 / 1000 SIG BOLUS ONE Rx#:[id number] - Constitutional mild distress - Routine HEENT Exam Head: Present: normocephalic, atraumatic ENT: Present: mucous membranes dry - Routine Neck Exam Present: supple (Obese) - Routine Cardiovascular Exam Present: S1, S2 - Routine Abdominal Exam Present: soft (, Large, obese, round, no abdominal pain to light palpation), normoactive bowel sounds - Routine Neurological Exam Present: alert (Awake answer simple questions) <Pauline Herrmann - Last Filed: 12/09/17 12:07> Vital signs: Vital Signs 12/08/17 17:00 12/08/17 19:06 12/08/17 23:17 Temperature 96.1 F L 98.6 F Pulse Rate 95 H 93 H 101 H Respiratory Rate 14 20 16 Blood Pressure 135/70 92/51 L Pulse Oximetry 98 97 98 12/09/17 04:00 12/09/17 08:00 12/09/17 10:59 Temperature 98.1 F 98.4 F Pulse Rate 97 H 88 Respiratory Rate 15 16 Blood Pressure 95/53 L 129/60 Pulse Oximetry 96 98 98 Intake & Output 12/08/17 12/09/17 12/09/17 18:59 06:59 18:59 Intake Total 1999 986 / 986 Balance 1999 986 / 986 Weight 90.718 kg Intake: IV 1999 986 / 986 NS Inj 1,000 ML @ 100 mls/hr IV 1000 / 1000 986 / 986 .CONT .Q10H [facility] Rx#:[id number] NS Inj 1,000 ML @ Wide Open IV. 1000 / 1000 SIG BOLUS ONE Rx#:[id number] Other: Date of Last Bowel Movement 12/09/17 <Rivera Palmer - Last Filed: 12/09/17 14:30> Results - Labs CBC & Chem 7: 12/09/17 08:17 12/09/17 08:17 Labs: Laboratory Results - last 24 hr 12/08/17 12/08/17 12/08/17 13:26 13:26 13:26 WBC 10.0 RBC 3.67 L Hgb 11.5 L Hct 33.8 L MCV 92.3 MCH 31.4 MCHC 34.0 RDW 13.8 Plt Count 231 D MPV 8.6 Neut % (Auto) 81.9 H Lymph % (Auto) 11.0 [place] % (Auto) 6.3 Eos % (Auto) 0.4 Baso % (Auto) 0.4 Neut # (Auto) 8.2 H Lymph # (Auto) 1.1 [place] # (Auto) 0.6 Eos # (Auto) 0.0 Baso # (Auto) 0.0 WBC Differential . Differential Comment Auto diff final PT 10.5 INR 1.0 APTT 22.7 L Sodium 143 Potassium 5.3 H Chloride 109 H Carbon Dioxide 27.8 Anion Gap 6 BUN 25 H Creatinine 1.00 Estimated GFR 53 L Random Glucose 125 H Calcium 8.2 L Magnesium 1.8 Total Bilirubin 0.3 AST 48 H ALT 34 Alkaline Phosphatase 39 L Troponin I Total Protein 5.7 L Albumin 2.7 L Lipase 86 Blood Type Blood Type Recheck Antibody Screen 12/08/17 12/08/17 12/09/17 13:26 13:26 08:17 WBC 8.0 RBC 2.44 L Hgb 7.7 L D Hct 22.5 L MCV 92.3 MCH 31.7 MCHC 34.3 RDW 14.1 Plt Count 183 MPV 8.2 Neut % (Auto) 75.6 H Lymph % (Auto) 18.3 [place] % (Auto) 5.2 Eos % (Auto) 0.4 Baso % (Auto) 0.5 Neut # (Auto) 6.1 Lymph # (Auto) 1.5 [place] # (Auto) 0.4 Eos # (Auto) 0.0 Baso # (Auto) 0.0 WBC Differential . Differential Comment Auto diff final PT INR APTT Sodium Potassium Chloride Carbon Dioxide Anion Gap BUN Creatinine Estimated GFR Random Glucose Calcium Magnesium Total Bilirubin AST ALT Alkaline Phosphatase Troponin I Less than 0.02 L Total Protein Albumin Lipase Blood Type A Positive Blood Type Recheck Not needed Antibody Screen Negative 12/09/17 08:17 WBC RBC Hgb Hct MCV MCH MCHC RDW Plt Count MPV Neut % (Auto) Lymph % (Auto) [place] % (Auto) Eos % (Auto) Baso % (Auto) Neut # (Auto) Lymph # (Auto) [place] # (Auto) Eos # (Auto) Baso # (Auto) WBC Differential Differential Comment PT INR APTT Sodium 147 H Potassium 4.4 D Chloride 114 H Carbon Dioxide 25.7 Anion Gap 7 BUN 50 H Creatinine 0.84 Estimated GFR 64 L Random Glucose 108 H Calcium 7.5 L Magnesium Total Bilirubin AST ALT Alkaline Phosphatase Troponin I Total Protein Albumin Lipase Blood Type Blood Type Recheck Antibody Screen - Imaging Impressions Abdomen/Pelvis CT 12/08/17 13:23 CONCLUSION: 1. Resolution of the previously seen inflammatory change within the small bowel. 2. Constipation. 3. 3 cm left adrenal gland nodule. CT characteristics are not consistent with a benign adenoma on this limited study. MRI could be utilized to further assess. <Pauline Herrmann - Last Filed: 12/09/17 12:07> - Labs CBC & Chem 7: 12/09/17 11:25 12/09/17 08:17 Labs: Laboratory Results - last 24 hr 12/08/17 12/09/17 12/09/17 13:26 08:17 08:17 WBC 8.0 RBC 2.44 L Hgb 7.7 L D Hct 22.5 L MCV 92.3 MCH 31.7 MCHC 34.3 RDW 14.1 Plt Count 183 MPV 8.2 Neut % (Auto) 75.6 H Lymph % (Auto) 18.3 [place] % (Auto) 5.2 Eos % (Auto) 0.4 Baso % (Auto) 0.5 Neut # (Auto) 6.1 Lymph # (Auto) 1.5 [place] # (Auto) 0.4 Eos # (Auto) 0.0 Baso # (Auto) 0.0 WBC Differential . Differential Comment Auto diff final Sodium 147 H Potassium 4.4 D Chloride 114 H Carbon Dioxide 25.7 Anion Gap 7 BUN 50 H Creatinine 0.84 Estimated GFR 64 L Random Glucose 108 H Calcium 7.5 L Troponin I Less than 0.02 L 12/09/17 11:25 WBC RBC Hgb 7.1 L Hct 21.2 L MCV MCH MCHC RDW Plt Count MPV Neut % (Auto) Lymph % (Auto) [place] % (Auto) Eos % (Auto) Baso % (Auto) Neut # (Auto) Lymph # (Auto) [place] # (Auto) Eos # (Auto) Baso # (Auto) WBC Differential Differential Comment Sodium Potassium Chloride Carbon Dioxide Anion Gap BUN Creatinine Estimated GFR Random Glucose Calcium Troponin I - Imaging Impressions Abdomen/Pelvis CT 12/08/17 13:23 CONCLUSION: 1. Resolution of the previously seen inflammatory change within the small bowel. 2. Constipation. 3. 3 cm left adrenal gland nodule. CT characteristics are not consistent with a benign adenoma on this limited study. MRI could be utilized to further assess. <Rivera Palmer - Last Filed: 12/09/17 14:30> Assessment and Plan (1) Constipation Status: Acute Code(s): K59.00 - Constipation, unspecified (2) Hematochezia Status: Acute Code(s): K92.1 - Melena (3) Syncope Status: Acute Code(s): R55 - Syncope and collapse (4) Orthostatic dizziness Status: Acute Code(s): R42 - Dizziness and giddiness - Plan History of recent diverticulitis has been maintained on Cipro and Flagyl. CT scan today showed resolution of the colon inflammation. Symptomatic anemia with symptoms of weakness and fatigue and near syncopal episode. Hemoglobin on admission 11.5 and currently this a.m. 7.7. PT/INR 1 normal bilirubin, AST 48 ALT 34. This is probably mild elevation due to fatty liver disease. Abdominal pain and is currently on the bedpan for defecation. Constipation acute onset during last hospital stay with being treated with for diverticulitis and on Cipro and Flagyl states bowel movement approximately 1 week apart with pebble-like stools and multiple episodes of straining she did note some bleeding in her stool several times and brought a sample in to the hospital for review. Patient also notes multiple hemorrhoids. Symptoms of nausea but no vomiting, Bright red rectal bleeding, probable secondary to straining hemorrhoids and constipation. But symptomatic hemoglobin. Plan Diet per attending recommend clear or full liquids for now Monitor labs with special attention to hemoglobin and transfuse as needed Notify GI of any obvious bleeding or worsening of her symptoms. Bowel regimen daily Pepcid Consider sigmoidoscopy if patient continues to have bright red rectal bleeding Patient was seen per myself and Dr. Palmer, this note was written on his behalf <Pauline Herrmann - Last Filed: 12/09/17 12:07> (1) Constipation Status: Acute Code(s): K59.00 - Constipation, unspecified (2) Hematochezia Status: Acute Code(s): K92.1 - Melena (3) Syncope Status: Acute Code(s): R55 - Syncope and collapse (4) Orthostatic dizziness Status: Acute Code(s): R42 - Dizziness and giddiness - Attending Attestation Seen and examined, plan as above, more recent bowel movement showed melena , will avoid flex sig or colonoscopy with evidence of acute diverticulosis. Will obtain consent for EGD in AM. Thank you for the consult. <Rivera Palmer - Last Filed: 12/09/17 14:30> <Pauline Herrmann M - Last Filed: 12/09/17 12:07> (3) Syncope Qualifiers: Syncope type: unspecified Qualified Code(s): R55 - Syncope and collapse <Rivera Palmer A - Last Filed: 12/09/17 14:30> (3) Syncope Qualifiers: Syncope type: unspecified Qualified Code(s): R55 - Syncope and collapse
[2017-12-09 12:13] LABS: Hematocrit 21.2 % (35.0-46.0); Hemoglobin 7.1 gm/dL (11.6-15.3)
--- NOTE | 2017-12-09 14:08 | P.PNIM ---
Subjective Interval history: Patient's hemoglobin dropped about 4 points overnight. She had a bloody bowel movement last night. She had another episode of melena this morning. She reports overall she is feeling a little bit better. No abdominal pain. Physical Exam Vital signs: Vital Signs 12/08/17 17:00 12/08/17 19:06 12/08/17 23:17 Temperature 96.1 F L 98.6 F Pulse Rate 95 H 93 H 101 H Respiratory Rate 14 20 16 Blood Pressure 135/70 92/51 L Pulse Oximetry 98 97 98 12/09/17 04:00 12/09/17 08:00 Temperature 98.1 F 98.4 F Pulse Rate 97 H 88 Respiratory Rate 15 16 Blood Pressure 95/53 L 129/60 Pulse Oximetry 96 98 Intake & Output 12/08/17 12/09/17 12/09/17 18:59 06:59 18:59 Intake Total 1999 986 / 986 Balance 1999 986 / 986 Weight 90.718 kg Intake: IV 1999 986 / 986 NS Inj 1,000 ML @ 100 mls/hr IV 1000 / 1000 986 / 986 .CONT .Q10H [facility] Rx#:[id number] NS Inj 1,000 ML @ Wide Open IV. 1000 / 1000 SIG BOLUS ONE Rx#:[id number] Narrative: GENERAL: Obese female in no apparent distress. CARDIOVASCULAR: Normal rate and regular rhythm without murmurs, gallops, or rubs. RESPIRATORY: Good respiratory efforts. Breath sounds equal and clear to auscultation bilaterally. GASTROINTESTINAL: Abdomen soft, non-tender, non-distended. Normal active bowel sounds MUSCULOSKELETAL: Extremities without cyanosis, or edema. NEURO: Alert & Oriented x4 to person, place, time, situation. Moves all ext x4 PSYCH: Appropriate mood and affect. Results - Labs CBC & Chem 7: 12/09/17 11:25 12/09/17 08:17 Laboratory Results - last 24 hr 12/08/17 12/08/17 12/08/17 13:26 13:26 13:26 WBC RBC Hgb Hct MCV MCH MCHC RDW Plt Count MPV Neut % (Auto) Lymph % (Auto) [place] % (Auto) Eos % (Auto) Baso % (Auto) Neut # (Auto) Lymph # (Auto) [place] # (Auto) Eos # (Auto) Baso # (Auto) WBC Differential Differential Comment PT 10.5 INR 1.0 APTT 22.7 L Sodium 143 Potassium 5.3 H Chloride 109 H Carbon Dioxide 27.8 Anion Gap 6 BUN 25 H Creatinine 1.00 Estimated GFR 53 L Random Glucose 125 H Calcium 8.2 L Magnesium 1.8 Total Bilirubin 0.3 AST 48 H ALT 34 Alkaline Phosphatase 39 L Troponin I Total Protein 5.7 L Albumin 2.7 L Lipase 86 Blood Type A Positive Blood Type Recheck Not needed Antibody Screen Negative 12/08/17 12/09/17 12/09/17 13:26 08:17 08:17 WBC 8.0 RBC 2.44 L Hgb 7.7 L D Hct 22.5 L MCV 92.3 MCH 31.7 MCHC 34.3 RDW 14.1 Plt Count 183 MPV 8.2 Neut % (Auto) 75.6 H Lymph % (Auto) 18.3 [place] % (Auto) 5.2 Eos % (Auto) 0.4 Baso % (Auto) 0.5 Neut # (Auto) 6.1 Lymph # (Auto) 1.5 [place] # (Auto) 0.4 Eos # (Auto) 0.0 Baso # (Auto) 0.0 WBC Differential . Differential Comment Auto diff final PT INR APTT Sodium 147 H Potassium 4.4 D Chloride 114 H Carbon Dioxide 25.7 Anion Gap 7 BUN 50 H Creatinine 0.84 Estimated GFR 64 L Random Glucose 108 H Calcium 7.5 L Magnesium Total Bilirubin AST ALT Alkaline Phosphatase Troponin I Less than 0.02 L Total Protein Albumin Lipase Blood Type Blood Type Recheck Antibody Screen 12/09/17 11:25 WBC RBC Hgb 7.1 L Hct 21.2 L MCV MCH MCHC RDW Plt Count MPV Neut % (Auto) Lymph % (Auto) [place] % (Auto) Eos % (Auto) Baso % (Auto) Neut # (Auto) Lymph # (Auto) [place] # (Auto) Eos # (Auto) Baso # (Auto) WBC Differential Differential Comment PT INR APTT Sodium Potassium Chloride Carbon Dioxide Anion Gap BUN Creatinine Estimated GFR Random Glucose Calcium Magnesium Total Bilirubin AST ALT Alkaline Phosphatase Troponin I Total Protein Albumin Lipase Blood Type Blood Type Recheck Antibody Screen - Imaging Impressions Abdomen/Pelvis CT 12/08/17 13:23 CONCLUSION: 1. Resolution of the previously seen inflammatory change within the small bowel. 2. Constipation. 3. 3 cm left adrenal gland nodule. CT characteristics are not consistent with a benign adenoma on this limited study. MRI could be utilized to further assess. Assessment and Plan - Assessment (1) Orthostatic dizziness Code(s): R42 - Dizziness and giddiness Status: Acute (2) Syncope Code(s): R55 - Syncope and collapse Status: Acute - Plan 86-year-old female with Near syncopal episode Orthostatic dizziness CT head noted and reviewed without any intracranial bleed Suspect this was related to a vasovagal reaction and anemia. Patient apparently having a GI bleed. GI bleeding: Recent diagnosis of diverticulitis Continue Cipro and Flagyl Consult GI Acute blood loss anemia: Continue to monitor H&H. May need blood transfusion. GI consulted as above. 3 cm left adrenal gland nodule per head CT Patient to follow outpatient with brain MRI DVT prophylaxis Bilateral SCDs (2) Syncope Qualifiers: Syncope type: unspecified Qualified Code(s): R55 - Syncope and collapse
[2017-12-09] MEDS ORDERED: Sodium Chlor 0.9% Inj 250 ML IV.SIG SCH (15:00)
--- NOTE | 2017-12-09 18:30 | P.PNGI ---
Subjective Interval history: Received GI Consult on - patient. at 2:25 PM today. 12/09/17. This pt is a known patient to our office and Dr Pickens. Full consult dictated. IMP: 1. Acute gi bleeding 2. Acute anemia of blood loss 3. Melena suspect upper gi bleeding PLAN: 1. Agree with Prbc 2. PPI bid 3. Diet as tolerated 4. Will plan for EGD tomorrow. Physical Exam Vital signs: Vital Signs 12/08/17 19:06 12/08/17 23:17 12/09/17 04:00 Temperature 96.1 F L 98.6 F 98.1 F Pulse Rate 93 H 101 H 97 H Respiratory Rate 20 16 15 Blood Pressure 92/51 L 95/53 L Pulse Oximetry 97 98 96 12/09/17 08:00 12/09/17 10:59 12/09/17 12:00 Temperature 98.4 F 98.6 F Pulse Rate 88 87 Respiratory Rate 16 16 Blood Pressure 129/60 109/52 L Pulse Oximetry 98 98 99 12/09/17 15:35 12/09/17 15:51 Temperature 98.6 F 98.5 F Pulse Rate 91 H 86 Respiratory Rate 16 18 Blood Pressure 124/59 L 126/58 L Pulse Oximetry 99 98 Intake & Output 12/08/17 12/09/17 12/09/17 18:59 06:59 18:59 Intake Total 1999 986 / 986 Balance 1999 986 / 986 Weight 90.718 kg Intake: IV 1999 986 / 986 NS Inj 1,000 ML @ 100 mls/hr IV 1000 / 1000 986 / 986 .CONT .Q10H [facility] Rx#:[id number] NS Inj 1,000 ML @ Wide Open IV. 1000 / 1000 SIG BOLUS ONE Rx#:[id number] Intake (Blood Product) Amt 0 / 0 Rbc As-3 Leukoreduced Unit 0 / 0 [id number] Other: Date of Last Bowel Movement 12/09/17 Results - Labs CBC & Chem 7: 12/09/17 11:25 12/09/17 08:17 Laboratory Results - last 24 hr 12/09/17 12/09/17 12/09/17 08:17 08:17 11:25 WBC 8.0 RBC 2.44 L Hgb 7.7 L D 7.1 L Hct 22.5 L 21.2 L MCV 92.3 MCH 31.7 MCHC 34.3 RDW 14.1 Plt Count 183 MPV 8.2 Neut % (Auto) 75.6 H Lymph % (Auto) 18.3 [place] % (Auto) 5.2 Eos % (Auto) 0.4 Baso % (Auto) 0.5 Neut # (Auto) 6.1 Lymph # (Auto) 1.5 [place] # (Auto) 0.4 Eos # (Auto) 0.0 Baso # (Auto) 0.0 WBC Differential . Differential Comment Auto diff final Sodium 147 H Potassium 4.4 D Chloride 114 H Carbon Dioxide 25.7 Anion Gap 7 BUN 50 H Creatinine 0.84 Estimated GFR 64 L Random Glucose 108 H Calcium 7.5 L MTS Gel Crossmatch 12/09/17 14:01 WBC RBC Hgb Hct MCV MCH MCHC RDW Plt Count MPV Neut % (Auto) Lymph % (Auto) [place] % (Auto) Eos % (Auto) Baso % (Auto) Neut # (Auto) Lymph # (Auto) [place] # (Auto) Eos # (Auto) Baso # (Auto) WBC Differential Differential Comment Sodium Potassium Chloride Carbon Dioxide Anion Gap BUN Creatinine Estimated GFR Random Glucose Calcium MTS Gel Crossmatch See Detail
[2017-12-09] MEDS: Pantoprazole Inj 40 MG Vial IV.PUSH SCH ×2 (18:55→23:43)
[2017-12-10] MEDS: Sod Chloride 0.9% Inj 1,000 ML IV.CONT SCH ×3 (04:42→22:47)
[2017-12-10 06:44] LABS: Hematocrit 26.9 % (35.0-46.0); Hemoglobin 9.4 gm/dL (11.6-15.3)
[2017-12-10] MEDS: metroNIDAZOLE 500 MG Tablet PO SCH ×3 (07:26→22:28)
[2017-12-10] MEDS ORDERED: Metoprolol Tartrate 25 MG Tablet PO SCH (09:15)
[2017-12-10] MEDS ORDERED: Chlorhexidine Gluconate 2% 1 Pack (2 Cloths) TOPICAL SCH (09:15)
--- NOTE | 2017-12-10 09:19 | MB ---
cc: Yunior Shipley MD DATE: 12/09/2017 SERVICE: GI. PRIMARY LAND EXAMINER: Dr. Geraldo Pickens. REASON FOR CONSULTATION: Diarrhea, Melena, anemia. HISTORY OF PRESENT ILLNESS: This is an 86-year-old, very pleasant female well known to our practice, sees Dr. Pickens in the office. She came into the hospital with the complaints of having a recent ER visit with diverticulitis, prescribed Cipro and Flagyl in November. She then returned to the ED with the complaints of having weakness, fatigue, dizziness and a near-syncopal episode. She initially stated she was having bright red blood with wiping, which was initially thought that may have been hemorrhoidal, but during this admission, she was actually noted to have melanotic and slight burgundy colored stools. She had further workup including in the ER, orthostatic and she was noted to have orthostatic hypotension. She denied any hematemesis or any hematochezia. Her endoscopic procedures, she has undergone an endoscopy in 2015 and is due for a repeat Perea's surveillance endoscopy 2018, her last colonoscopy was 06/[address] Pickens, was found to have one small colon polyp which was removed and sigmoid diverticulosis. PAST MEDICAL HISTORY: Anemia, history of Perea's esophagus, history of GERD, hyperdyslipidemia, obesity. PAST SURGICAL HISTORY: Appendectomy, cholecystectomy. FAMILY HISTORY: No GI malignancies. SOCIAL HISTORY: Distant history of tobacco use. Drinks alcohol socially. Denies any illicit drug use. REVIEW OF SYSTEMS: A 12-point review of system was obtained by me, showed to be negative or noncontributory except the above-mentioned in HPI. ALLERGIES: AMLODIPINE, AMPICILLIN, ATORVASTATIN, IBUPROFEN, NAPROXEN, PRAVASTATIN. HOME MEDICATIONS: Included Zetia, calcium, docusate, ginkgo biloba, glucosamine, melatonin, multivitamin, [place]-3, ranitidine. PHYSICAL EXAMINATION: VITAL SIGNS: Temperature 98.5, heart rate of 86, respiration 18, blood pressure 126/58, O2 saturation 98% on room air. GENERAL: Alert, oriented x 3, in no acute distress. HEENT: Mucosa moist and pink. are intact. Pupils equal, round, reactive to light. NECK: Supple, nontender. No carotid bruits noted. No thyromegaly appreciated. CARDIOVASCULAR: Regular rate and rhythm. No murmurs heard. RESPIRATORY: Clear to auscultation. No wheezing noted bilaterally. ABDOMEN: Soft, nontender, nondistended. Bowel sounds present in all 4 quadrants. No rebound appreciated. No ecchymosis noted. No hepatosplenomegaly, no hernia noted. LYMPH NODES: No abnormal lymphadenopathy noted. MUSCULOSKELETAL: Equal strength upper and lower extremities, overall weakness. GENITOURINARY, BACK: No CV angle tenderness noted. No lymphadenopathy noted. NEUROLOGIC: Alert and oriented. No focal deficits. PSYCHIATRIC: Cooperative, appropriate mood and affect. LABORATORY DATA: WBC 8.0, hemoglobin 7.7, reduced from 11.5 on admission, MCV 92.3, INR 1.0. Sodium 147, potassium 4.4, chloride 114, bicarbonate 25, BUN 50, creatinine 0.84, total bilirubin 0.3, AST 48, ALT 34, alkaline phosphatase 39, lipase 86. IMPRESSION: 1. Acute anemia of blood loss. The patient having evidence of melanotic bowel movements, may be secondary to an upper gastrointestinal bleed such as peptic ulcer disease, erosive esophagitis, gastritis. Risk factors are the patient does take a nonsteroidal 1-2 times a month, as well as a daily aspirin. 2. Melena. 3. History of Perea's esophagus. 4. Diverticulosis with a recent attack of diverticulitis. RECOMMENDATIONS: 1. Full liquid diet today, n.p.o. after midnight. 2. We will plan for an upper endoscopy tomorrow. 3. Recommend Protonix 40 mg IV b.i.d. 4. Monitor stool for color, consistency and frequency. If the patient has recurrence of further melena stools, which then progresses to hematochezia, then the patient may need transfer to the intensive care unit and possible tagged bleeding scan overnight if necessary. At this time, the patient appears to be stable condition, with relative stable vital signs, therefore, emergent upper endoscopy I do not believe it is necessary. I did explain that if overnight her clinical presentation should change, we may consider having her undergo an upper endoscopy and she is agreeable to this. Thank you for allowing [facility] to participate in the care of this patient. We will follow along with you and make recommendation as per the patient's clinical course. MD ERIN Mesa , 07:54 PM , 08:24 PM
[2017-12-10] MEDS ORDERED: Sodium Chlor 0.9% Inj 500 ML IV.SIG SCH (10:00)
[2017-12-10] MEDS: Pantoprazole Inj 40 MG Vial IV.PUSH SCH ×2 (10:02→22:26)
[2017-12-10] MEDS: Ciprofloxacin 500 MG Tablet PO SCH ×2 (10:02→22:28)
--- NOTE | 2017-12-10 11:54 | P.PNIM ---
Subjective Interval history: Patient reports she is feeling nauseous this morning. No vomiting. No bowel movement this morning. Seen by Dr. Shipley from GI, planning for EGD this morning. Physical Exam Vital signs: Vital Signs 12/09/17 12:00 12/09/17 15:35 12/09/17 15:51 Temperature 98.6 F 98.6 F 98.5 F Pulse Rate 87 91 H 86 Respiratory Rate 16 16 18 Blood Pressure 109/52 L 124/59 L 126/58 L Pulse Oximetry 99 99 98 12/09/17 20:00 12/09/17 20:24 12/09/17 20:30 Temperature 97.9 F 97.6 F Pulse Rate 87 82 78 Respiratory Rate 17 22 Blood Pressure 121/84 121/64 118/59 L Pulse Oximetry 97 99 96 12/09/17 22:00 12/09/17 23:20 12/10/17 00:26 Temperature 98.8 F 98.0 F 96.8 F L Pulse Rate 84 72 75 Respiratory Rate 15 18 Blood Pressure 111/55 L 120/61 108/53 L Pulse Oximetry 97 97 96 12/10/17 04:06 12/10/17 08:00 Temperature 96 F L 97.6 F Pulse Rate 74 91 H Respiratory Rate 18 17 Blood Pressure 106/53 L 154/70 H Pulse Oximetry 96 92 L Intake & Output 12/09/17 12/10/17 12/10/17 18:59 06:59 18:59 Intake Total 1371 / 1371 1400 / 1400 100 / 100 Balance 1371 / 1371 1400 / 1400 100 / 100 Intake: IV 986 / 986 1000 / 1000 100 / 100 NS Inj 1,000 ML @ 100 mls/hr IV 986 / 986 1000 / 1000 .CONT .Q10H PAMELLA Rx#:[id number] NS Inj 250 ML @ 15 mls/hr IV. 100 / 100 SIG ONCE PAMELLA Rx#:[id number] Intake (Blood Product) Amt 385 / 385 400 / 400 Rbc As-3 Leukoreduced Unit 400 / 400 [id number] Rbc As-3 Leukoreduced Unit 385 / 385 [id number] Other: # Voids 3 1 Date of Last Bowel Movement 12/09/17 12/10/17 # Bowel Movements 4 2 Narrative: GENERAL: Obese female in no apparent distress. CARDIOVASCULAR: Normal rate and regular rhythm without murmurs, gallops, or rubs. RESPIRATORY: Good respiratory efforts. Breath sounds equal and clear to auscultation bilaterally. GASTROINTESTINAL: Abdomen soft, non-tender, non-distended. Normal active bowel sounds MUSCULOSKELETAL: Extremities without cyanosis, or edema. Results - Labs CBC & Chem 7: 12/10/17 06:00 12/09/17 08:17 Laboratory Results - last 24 hr 12/09/17 12/09/17 12/10/17 11:25 14:01 06:00 Hgb 7.1 L 9.4 L D Hct 21.2 L 26.9 L MTS Gel Crossmatch See Detail Assessment and Plan - Assessment (1) Orthostatic dizziness Code(s): R42 - Dizziness and giddiness Status: Acute (2) Syncope Code(s): R55 - Syncope and collapse Status: Acute (3) Acute blood loss anemia Code(s): D62 - Acute posthemorrhagic anemia Status: Acute (4) Melena Code(s): K92.1 - Melena Status: Acute (5) Gastrointestinal hemorrhage with melena Code(s): K92.1 - Melena Status: Acute - Plan 86-year-old female who presented for near syncopal episode, patient apparently having GI bleeding. GI bleeding: Suspect upper GI bleeding. Recent diagnosis of diverticulitis Continue Cipro and Flagyl GI following and planning for EGD this morning. Continue Protonix IV twice daily. Near syncopal episode and Orthostatic dizziness. All secondary to acute blood loss anemia from GI bleeding. CT head noted and reviewed without any intracranial bleed Acute blood loss anemia: Status post 2 units of PRBC transfusion. GI following and planning for endoscopy this morning. Continue to monitor H&H. Transfuse for hemoglobin less than 7. 3 cm left adrenal gland nodule per head CT Patient to follow outpatient with brain MRI DVT prophylaxis Bilateral SCDs (2) Syncope Qualifiers: Syncope type: unspecified Qualified Code(s): R55 - Syncope and collapse
[2017-12-10] MEDS ORDERED: Lidocaine PF 1% Inj 5 ML Syringe INFILTRATN ONE (12:00)
[2017-12-10] MEDS ORDERED: Phenylephrine/NS 1000 MCG/10ML Syringe IV.PUSH ONE (12:00)
--- NOTE | 2017-12-10 16:30 | GIPROC ---
[facility] [address] [facility]. [facility], [address] EGD PROCEDURE REPORT EXAM DATE: 12/10/2017 PATIENT NAME: Enriqueta Carson MR#: [id number] BIRTHDATE: 1930 STATUS: inpatient ATTENDING: Yunior Shipley MD VISIT ID: [id number] TELEMARKETING MANAGER: Charity Trammell Terrie ORDER #: [id number] INDICATIONS: The patient is a 86 yr old female here for an EGD due to melena. PROCEDURE PERFORMED: EGD, diagnostic MEDICATIONS: None and Per Anesthesia. ASA CLASS: Class III PHYSICAL EXAM: normal CONSENT: The patient understands the risks and benefits of the procedure and understands that these risks include, but are not limited to: sedation, allergic reaction, infection, perforation and/or bleeding. Alternative means of evaluation and treatment include, among others: physical exam, x-rays, and/or surgical intervention. The patient elects to proceed with this endoscopic procedure. DESCRIPTION OF PROCEDURE: for proper function. Hand hygiene and appropriate measures for infection prevention was taken. After the risks, benefits and alternatives of the procedure were thoroughly explained, Informed consent was verified, confirmed and timeout was successfully executed by the treatment team. The [employer] [id number] endoscope was introduced through the mouth and advanced to the second portion of the duodenum. The instrument was slowly withdrawn as the mucosa was fully examined. ESOPHAGUS: Distal esophageal spasm noted. STOMACH: The mucosa of the stomach appeared normal. DUODENUM: The duodenal mucosa appeared normal in the duodenal bulb and 2nd part duodenum. There was no evidence of upper gi bleeding in the stomach. Retroflexed views revealed no abnormalities The gastroscope was then slowly withdrawn and removed. COMPLICATIONS: There were no complications. IMPRESSIONS: 1. Distal esophageal spasm noted 2. Retroflexed views revealed no abnormalities 3. No evidence of upper gi bleeding. RECOMMENDATIONS: 1. Advance diet to regular as toleratd 2. Monitor stool 3. Monitor hb 4. If no new bleeding and hb stable, no objection to discharge from gi stand point PATIENT CONDITION: stable DISPOSITION: Observation REPEAT EXAM: NONE Yunior Shipley MD eSigned: Yunior Shipley MD 12/10/2017 4:29 PM cc: PATIENT NAME: Enriqueta Carson MR#: [id number]
--- NOTE | 2017-12-10 16:57 | P.PNGI ---
Subjective Interval history: Post procedure note s/p EGD Full note in computer IMP: 1. Eso spasm 2. Normal stomach 3. normal duodenum 4. No evidence of active upper GI bleeding. PLAN: 1. Advance diet as tolerated 2. Monitor stool for continued bleeding possible bleeding is from a diverticulum 3. Pt's had colonoscopy in06/2017 (small polyp removed and sigmoid tic noted) 4. Would like to avoid rpt colon at this time 5. If persistent melena, or continued drop in hb then i recommend Tagged bleeding scan. Physical Exam Vital signs: Vital Signs 12/09/17 20:00 12/09/17 20:24 12/09/17 20:30 Temperature 97.9 F 97.6 F Pulse Rate 87 82 78 Respiratory Rate 17 22 Blood Pressure 121/84 121/64 118/59 L Pulse Oximetry 97 99 96 12/09/17 22:00 12/09/17 23:20 12/10/17 00:26 Temperature 98.8 F 98.0 F 96.8 F L Pulse Rate 84 72 75 Respiratory Rate 15 18 Blood Pressure 111/55 L 120/61 108/53 L Pulse Oximetry 97 97 96 12/10/17 04:06 12/10/17 08:00 12/10/17 10:00 Temperature 96 F L 97.6 F Pulse Rate 74 91 H Respiratory Rate 18 17 Blood Pressure 106/53 L 154/70 H Pulse Oximetry 96 92 L 97 12/10/17 12:00 12/10/17 16:36 12/10/17 16:45 Temperature 98.5 F 97.0 F L 97.0 F L Pulse Rate 74 71 73 Respiratory Rate 16 16 16 Blood Pressure 130/63 122/58 L 127/62 Pulse Oximetry 97 98 Intake & Output 12/09/17 12/10/17 12/10/17 18:59 06:59 18:59 Intake Total 1371 / 1371 1400 / 1400 300 / 300 Balance 1371 / 1371 1400 / 1400 300 / 300 Intake: IV 986 / 986 1000 / 1000 100 / 100 NS Inj 1,000 ML @ 100 mls/hr IV 986 / 986 1000 / 1000 .CONT .Q10H PAMELLA Rx#:[id number] NS Inj 250 ML @ 15 mls/hr IV. 100 / 100 SIG ONCE PAMELLA Rx#:[id number] Anesthesia Amount 200 / 200 Intake (Blood Product) Amt 385 / 385 400 / 400 Rbc As-3 Leukoreduced Unit 400 / 400 [id number] Rbc As-3 Leukoreduced Unit 385 / 385 [id number] Other: # Voids 3 1 1 Date of Last Bowel Movement 12/09/17 12/10/17 12/10/17 # Bowel Movements 4 2 Results - Labs CBC & Chem 7: 12/10/17 06:00 12/09/17 08:17 Laboratory Results - last 24 hr 12/09/17 12/10/17 14:01 06:00 Hgb 9.4 L D Hct 26.9 L MTS Gel Crossmatch See Detail
[2017-12-11] MEDS: metroNIDAZOLE 500 MG Tablet PO SCH (08:26)
--- NOTE | 2017-12-11 10:19 | P.PNGI ---
Subjective Interval history: feels well, had bm yesterday no bleeding s/p EGD no active bleeding Physical Exam Vital signs: Vital Signs 12/10/17 12:00 12/10/17 16:36 12/10/17 16:45 Temperature 98.5 F 97.0 F L 97.0 F L Pulse Rate 74 71 73 Respiratory Rate 16 16 16 Blood Pressure 130/63 122/58 L 127/62 Pulse Oximetry 97 98 12/10/17 20:00 12/10/17 21:20 12/11/17 00:00 Temperature 98.4 F 97.6 F Pulse Rate 75 72 Respiratory Rate 16 20 Blood Pressure 122/64 121/58 L Pulse Oximetry 96 96 95 12/11/17 04:00 12/11/17 08:00 Temperature 97.8 F 98.4 F Pulse Rate 70 66 Respiratory Rate 16 18 Blood Pressure 124/61 135/63 Pulse Oximetry 99 96 Intake & Output 12/10/17 12/11/17 12/11/17 18:59 06:59 18:59 Intake Total 300 / 300 1000 / 1000 Balance 300 / 300 1000 / 1000 Intake: IV 100 / 100 1000 / 1000 NS Inj 1,000 ML @ 100 mls/hr IV 1000 / 1000 .CONT .Q10H PAMELLA Rx#:[id number] NS Inj 250 ML @ 15 mls/hr IV. 100 / 100 SIG ONCE PAMELLA Rx#:[id number] Anesthesia Amount 200 / 200 Other: # Voids 2 1 Date of Last Bowel Movement 12/10/17 12/10/17 # Bowel Movements 4 - Constitutional no acute distress - Routine HEENT Exam Head: Present: normocephalic Eye: Present: EOMI ENT: Present: mucous membranes moist - Routine Neck Exam Present: supple - Routine Respiratory Exam Present: CTA bilaterally. Absent: accessory muscle use - Routine Cardiovascular Exam Present: RRR, S1 - Routine Abdominal Exam Present: soft, normoactive bowel sounds. Absent: tenderness, distended, rebound - Routine Skin Exam Present: intact - Routine Neurological Exam Present: alert, oriented X3 Results - Labs CBC & Chem 7: 12/10/17 06:00 12/09/17 08:17 Assessment and Plan (1) Orthostatic dizziness Status: Acute Code(s): R42 - Dizziness and giddiness (2) Acute blood loss anemia Status: Acute Code(s): D62 - Acute posthemorrhagic anemia (3) Gastrointestinal hemorrhage with melena Status: Acute Code(s): K92.1 - Melena - Plan PLAN: 1. Diet as tolerated 2. CbC this am If stable then no objection to discharge from gi stand point 3. Outpt follow up with Gi in 2-3 wks 4. No active evidence of diverticulitis episode therefor can stop ABX. 5. D/w with patient
[2017-12-11] MEDS: Sod Chloride 0.9% Inj 1,000 ML IV.CONT SCH (10:23)
[2017-12-11] MEDS: Ciprofloxacin 500 MG Tablet PO SCH (10:24)
[2017-12-11] MEDS: Pantoprazole Inj 40 MG Vial IV.PUSH SCH (10:24)
--- NOTE | 2017-12-11 13:03 | P.PNIM ---
Subjective Interval history: She says she is feeling right. Denies any abdominal pain. Denies any chest pain or shortness of breath. Denies any nausea or vomiting. Physical Exam Vital signs: Vital Signs 12/10/17 16:36 12/10/17 16:45 12/10/17 20:00 Temperature 97.0 F L 97.0 F L 98.4 F Pulse Rate 71 73 75 Respiratory Rate 16 16 16 Blood Pressure 122/58 L 127/62 122/64 Pulse Oximetry 98 96 12/10/17 21:20 12/11/17 00:00 12/11/17 04:00 Temperature 97.6 F 97.8 F Pulse Rate 72 70 Respiratory Rate 20 16 Blood Pressure 121/58 L 124/61 Pulse Oximetry 96 95 99 12/11/17 08:00 12/11/17 12:00 Temperature 98.4 F 98.6 F Pulse Rate 66 76 Respiratory Rate 18 18 Blood Pressure 135/63 124/62 Pulse Oximetry 96 96 Intake & Output 12/10/17 12/11/17 12/11/17 18:59 06:59 18:59 Intake Total 300 / 300 1000 / 1000 1000 / 1000 Balance 300 / 300 1000 / 1000 1000 / 1000 Intake: IV 100 / 100 1000 / 1000 1000 / 1000 NS Inj 1,000 ML @ 100 mls/hr IV 1000 / 1000 1000 / 1000 .CONT .Q10H P[facility]A Rx#:[id number] NS Inj 250 ML @ 15 mls/hr IV. 100 / 100 SIG ONCE PAMELLA Rx#:[id number] Anesthesia Amount 200 / 200 Other: # Voids 2 1 Date of Last Bowel Movement 12/10/17 12/10/17 12/10/17 # Bowel Movements 4 Narrative: GENERAL: She is sitting up in bed. Appears comfortable. SKIN: Warm and dry. HEAD: Normocephalic. EYES: No scleral icterus. No injection or drainage. NECK: Supple, trachea midline. No JVD or lymphadenopathy. CARDIOVASCULAR: Regular rate and rhythm without murmurs, gallops, or rubs. RESPIRATORY: Breath sounds equal bilaterally. No accessory muscle use. GASTROINTESTINAL: Abdomen soft, non-tender, nondistended. MUSCULOSKELETAL: No cyanosis, or edema. BACK: Nontender without obvious deformity. No CVA tenderness. Results - Labs CBC & Chem 7: 12/10/17 06:00 12/09/17 08:17 Assessment and Plan - Assessment (1) Orthostatic dizziness Code(s): R42 - Dizziness and giddiness Status: Acute (2) Syncope Code(s): R55 - Syncope and collapse Status: Acute (3) Acute blood loss anemia Code(s): D62 - Acute posthemorrhagic anemia Status: Acute (4) Melena Code(s): K92.1 - Melena Status: Acute (5) Gastrointestinal hemorrhage with melena Code(s): K92.1 - Melena Status: Acute - Plan 86-year-old female who presented for near syncopal episode, patient apparently having GI bleeding. //GI bleeding: Suspect upper GI bleeding. Recent diagnosis of diverticulitis Continue Cipro and Flagyl GI following and planning for EGD this morning. Continue Protonix IV twice daily. = Repeat CBC pending by GI. Appreciate assistance. //Near syncopal episode and Orthostatic dizziness. All secondary to acute blood loss anemia from GI bleeding. CT head noted and reviewed without any intracranial bleed //Acute blood loss anemia: Status post 2 units of PRBC transfusion. GI following and planning for endoscopy this morning. Continue to monitor H&H. Transfuse for hemoglobin less than 7. = Repeat CBC pending. //Hypernatremia's. Sodium 147. Repeat pending. //3 cm left adrenal gland nodule per ABD CT Patient to follow outpatient with MRI. Advised that this could be cancer. Patient conveys understanding. //DVT prophylaxis Bilateral SCDs Discussed Condition With: Patient, nurse at [facility] Discharge Planning: Discharge pending labs. (2) Syncope Qualifiers: Syncope type: unspecified Qualified Code(s): R55 - Syncope and collapse
[2017-12-11 13:25] LABS: Hematocrit 27.4 % (35.0-46.0); Hemoglobin 9.3 gm/dL (11.6-15.3); Mean Corpuscular Hemoglobin 31.5 pg (27.0-34.0); Mean Corpuscular Volume 92.7 fL (80.0-100.0); Mean Platelet Volume 8.5 fL (7.0-11.0); Platelet Count 148 th/mm3 (150-450); Red Blood Count 2.96 mil/mm3 (4.00-5.30); Red Cell Distribution Width 14.2 % (11.6-17.2); White Blood Count 4.9 th/mm3 (4.0-11.0)
[2017-12-11 15:01] LABS: Calcium 7.6 mg/dL (8.5-10.1); Potassium 3.8 meq/L (3.5-5.1)
--- NOTE | 2017-12-11 16:01 | P.DCO ---
- Physical Therapy Order: Evaluate and treat - Home Health Nursing Order: Nursing assessment with vital signs - Principal Embedded Software Engineer Order: To evaluate: Support services Order: To provide: Long range planning - Certification I have seen patient Enriqueta Carson on 12/11/17. My clinical findings support the need for the requested home health care services because: Limited ability to care for self, Need for psychosocial assistance I certify that my clinical findings support that this patient is homebound because: Unsafe to leave home unassisted, Need for psychosocial assistance
--- NOTE | 2017-12-11 16:09 | P.DS ---
Date of admission: 12/09/17 14:09 Primary care physician: Alicia Urias MD Brief History from admission: 86-year-old female who was recently diagnosed with diverticulitis and prescribed Cipro and Flagyl December 02, 2017 return to the ED today for evaluation of an acute onset of dizziness as well as near syncopal episode. Patient also states, during transport to the ED as she wiped herself after a BM, she noted bright red blood. However in the ED, patient H&H remained stable. Patient states when she first came to the ED back December 02, 2017 she had bright red blood per rectum but was sent home after 4 hours in the emergency department. Her last colonoscopy was 6 months ago and she was advised for a repeat in 3 years. While in the ED, patient was found to have orthostatic BP. She complained of nausea without any emesis. She denies any chest pain or significant shortness of breath. DS: Diagnosis - Discharge Diagnosis (1) Acute blood loss anemia Status: Acute (2) Syncope Status: Acute (3) Orthostatic dizziness Status: Acute (4) Melena Status: Acute (5) Gastrointestinal hemorrhage with melena Status: Acute (6) Adrenal nodule Status: Acute DS: Summary Hospital Course: Patient was found to have anemia on admission, however this resolved after blood transfusion with hemoglobin subsequently stable. GI was consulted patient underwent panendoscopy. Please see report. No evidence of further active bleeding. PT recommends rehab, however patient refuses. Patient found to have 3 cm left adrenal gland nodule which does not appear to be benign. Patient counseled and conveys understanding. Will follow with primary care. Patient discharged home with home health. Follow with GI and primary care as outpatient For problem based summary from most recent progress note, please see below. 86-year-old female who presented for near syncopal episode, patient apparently having GI bleeding. //GI bleeding: Suspect upper GI bleeding. Recent diagnosis of diverticulitis Continue Cipro and Flagyl GI following and planning for EGD this morning. Continue Protonix IV twice daily. = Repeat CBC pending by GI. Appreciate assistance. //Near syncopal episode and Orthostatic dizziness. All secondary to acute blood loss anemia from GI bleeding. CT head noted and reviewed without any intracranial bleed //Acute blood loss anemia: Status post 2 units of PRBC transfusion. GI following and planning for endoscopy this morning. Continue to monitor H&H. Transfuse for hemoglobin less than 7. = Repeat CBC pending. //Hypernatremia's. Sodium 147. Repeat pending. //3 cm left adrenal gland nodule per ABD CT Patient to follow outpatient with MRI. Advised that this could be cancer. Patient conveys understanding. //DVT prophylaxis Bilateral SCDs Discussed Condition With: Patient, nurse at [facility] Discharge Planning: Discharge pending labs. - Time Spent with Patient Total time spent providing and/or coordinating discharge services: - Quality: VTE Deep Vein Thrombosis/Pulmonary Embolism Present on Admission: No Exam Vital signs: Vital Signs 12/10/17 16:36 12/10/17 16:45 12/10/17 20:00 Temperature 97.0 F L 97.0 F L 98.4 F Pulse Rate 71 73 75 Respiratory Rate 16 16 16 Blood Pressure 122/58 L 127/62 122/64 Pulse Oximetry 98 96 12/10/17 21:20 12/11/17 00:00 12/11/17 04:00 Temperature 97.6 F 97.8 F Pulse Rate 72 70 Respiratory Rate 20 16 Blood Pressure 121/58 L 124/61 Pulse Oximetry 96 95 99 12/11/17 08:00 12/11/17 12:00 12/11/17 15:59 Temperature 98.4 F 98.6 F 99.1 F Pulse Rate 66 76 78 Respiratory Rate 18 18 18 Blood Pressure 135/63 124/62 131/63 Pulse Oximetry 96 96 97 Intake & Output 12/10/17 12/11/17 12/11/17 18:59 06:59 18:59 Intake Total 300 / 300 1000 / 1000 1000 / 1000 Balance 300 / 300 1000 / 1000 1000 / 1000 Intake: IV 100 / 100 1000 / 1000 1000 / 1000 NS Inj 1,000 ML @ 100 mls/hr IV 1000 / 1000 1000 / 1000 .CONT .Q10H P[facility]A Rx#:[id number] NS Inj 250 ML @ 15 mls/hr IV. 100 / 100 SIG ONCE PAMELLA Rx#:[id number] Anesthesia Amount 200 / 200 Other: # Voids 2 1 Date of Last Bowel Movement 12/10/17 12/10/17 12/10/17 # Bowel Movements 4 Results Procedures completed during hospitalization: Panendoscopy. Please see report Labs on day of discharge: Labs from last 24 hours 12/11/17 12/11/17 13:50 13:02 WBC 4.9 RBC 2.96 L Hgb 9.3 L Hct 27.4 L MCV 92.7 MCH 31.5 MCHC 34.0 RDW 14.2 Plt Count 148 L MPV 8.5 Sodium 144 Potassium 3.8 Chloride 111 H Carbon Dioxide 26.0 Anion Gap 7 BUN 9 Creatinine 0.69 Estimated GFR 81 L Random Glucose 100 Calcium 7.6 L - Impressions ITS Impressions Abdomen/Pelvis CT 12/08/17 13:23 CONCLUSION: 1. Resolution of the previously seen inflammatory change within the small bowel. 2. Constipation. 3. 3 cm left adrenal gland nodule. CT characteristics are not consistent with a benign adenoma on this limited study. MRI could be utilized to further assess. Discharge Plan - Discharge Disposition Patient Disposition: W/Home Health Service - Discharge Condition Condition: Good - Discharge Details Anticipated Discharge Date: 12/11/17 - Physicians Team Primary Care Provider: Alicia Urias Attending Provider: Eugenio Muñoz Other Providers: Yunior Shipley MD
== END 2017-12-11 18:39 | disposition home health service (06) ==
LOC: NEDA 12:23 → NEPE 12:23 → NEPFCDU 17:53
PROVIDERS: ADMIT Internal Medicine; ATTEND Internal Medicine
PROC: PANENDO (2017-12-10 16:12)

== ENCOUNTER 2018-02-13 18:39 | Observation (INO) ==
[2018-02-13] MEDS ORDERED: Aspirin 325 MG Tablet PO ONE (19:16)
--- NOTE | 2018-02-13 19:24 | ED ---
HPI General Chief Complaint: Chest Pain Stated Complaint: Chest Pain Time Seen by Provider: 02/13/18 19:16 History of Present Illness HPI narrative: Is an 87-year-old female with issue of hypertension, hyperlipidemia, gastric esophageal reflux disease, who presents today with complaints of 4 episodes of intermittent chest pain with exertion. Patient states she was working with her daughter to help her get unpacked after moving here, when she experienced an episode of substernal and bilateral upper chest pain. She reports it as a 5-6 of the chest pain scale. She states it lasted for several minutes and then went away. She states that she had 3 further episodes within the next hour and a half. She denies any nausea, diaphoresis, shortness of breath. She states that she has never had pain like this before. The patient was concerned that this may be her heart and had her call 911. The patient denies any cardiac history. She denies having a digital producer. She states she scheduled for an upper endoscopy here in the next week and a half. There are no other complaints at the time of my examination. Related Data Home Medications Medication Instructions Recorded Confirmed calcium citrate-vitamin D3 1 tab PO DAILY 12/02/17 02/13/18 docusate sodium [Stool Softener] 100 mg PO DAILY PRN 12/02/17 02/13/18 ezetimibe [Zetia] 10 mg PO DAILY 12/02/17 02/13/18 ginkgo biloba 120 mg PO DAILY 12/02/17 02/13/18 [id number]-[id number]-[id number]-C-jamila-bosw 2 tab PO DAILY 12/02/17 02/13/18 [Osteo Bi-Flex Triple Strength] melatonin 10 mg PO HS PRN 12/02/17 02/13/18 multivitamin [Multiple Vitamins] 1 tab PO DAILY 12/02/17 02/13/18 ziwpv-4q-hum-epa-fish oil-D3 [Fish 1 cap PO DAILY 12/02/17 02/13/18 Oil-Vit D3] peg 400-propylene glycol (PF) 1 drp OPHTHALMIC (EYE) TID PRN 12/02/17 02/13/18 [Systane (PF)] ranitidine HCl [Zantac] 300 mg PO DAILY 12/02/17 02/13/18 terbinafine [Lamisil AT] 1 applic TOPICAL DAILY 12/02/17 02/13/18 vit B1 [id number]-C-FA [B 1 tab PO DAILY 12/02/17 02/13/18 Complex w-Vit C] aspirin 81 mg PO DAILY 02/13/18 02/13/18 Allergies Allergy/AdvReac Type Severity Reaction Status Date / Time amlodipine Allergy Severe WEAKNESS Verified 02/13/18 18:46 ampicillin Allergy Severe HIVES/ITCHI Verified 12/02/17 12:05 NG atorvastatin Allergy Severe WEAKNESS Verified 02/13/18 18:46 bee venom protein (honey bee) Allergy Severe ANAPHALAXIS Verified 02/13/18 18:46 ibuprofen Allergy Severe Hives Verified 02/13/18 18:46 naproxen Allergy Severe Nausea/Vomi Verified 12/02/17 12:05 ting pravastatin Allergy Severe WEAKNESS Verified 02/13/18 18:46 simvastatin Allergy Severe WEAKNESS Verified 02/13/18 18:46 Review of Systems ROS: all other systems reviewed are negative Constitutional Denies chills and Denies fever(s) Eyes Reports system reviewed and no additional complaints, except as docu ENT Reports system reviewed and no additional complaints, except as [facility] Cardiovascular Reports chest pain (Bilateral upper and substernal. 5-6 out of 10 on the 10 scale.), Denies chest pain at rest, Reports chest pain with activity, Denies edema, Reports leg edema (Chronic bilateral) and Denies dyspnea Respiratory Denies chest congestion, Denies pain on inspiration and Denies dyspnea Gastrointestinal Denies nausea, Denies vomiting and Reports other (GERD by history.) Genitourinary Denies urinary frequency and Denies dysuria Musculoskeletal Denies back pain, Denies numbness and Denies tingling Integumentary/Breasts Denies new lesions and Denies rash Neurologic Reports system reviewed and no additional complaints, except as [facility] Medical History Medical History Hypercholesteremia (Acute) Obesity (Acute) Joint pain (Acute) Hypotension (Acute) GERD (gastroesophageal reflux disease) (Acute) Chondromalacia (Acute) Perea esophagus (Acute) Abdominal pain (Acute) Anemia (Acute) Surgical History Surgical History History of cholecystectomy (Acute) History of appendectomy (Acute) Social History Social History Substance History: No History of Abuse Second Hand Smoke Exposure: No Smoking Status: Never smoker Tobacco Type: Cigarettes How Often Do You Have a Drink Containing Alcohol: 2 to 4 times a month Recent Travel in [facility] within the Last 8 Weeks: No Recent Out of Country Travel within the Last 8 Weeks: No Immunization History Tetanus Immunization: >5 Years Hx Influenza Vaccine This Season: No Exam Narrative Exam Narrative: GENERAL: Well-developed well-nourished female in no acute respiratory distress. SKIN: Focused skin assessment warm/dry. HEAD: Atraumatic. Normocephalic. EYES: No scleral icterus. No injection or drainage. ENT: No nasal bleeding or discharge. Mucous membranes pink and moist. NECK: Trachea midline. No JVD. Supple. CARDIOVASCULAR: Regular rate and sinus arrhythmia on the monitor. No murmur appreciated. RESPIRATORY: No accessory muscle use. Clear to auscultation. Breath sounds equal bilaterally. GASTROINTESTINAL: Abdomen soft, non-tender, nondistended. Hepatic and splenic margins not palpable. MUSCULOSKELETAL: No obvious deformities. No clubbing. No cyanosis. Trace bilateral pretibial edema. NEUROLOGICAL: Awake and alert. No obvious cranial nerve deficits. Motor grossly within normal limits. Normal speech. PSYCHIATRIC: Appropriate mood and affect; insight and judgment normal. Course Initial Documented Vital Signs Temperature 97.8 F 02/13/18 18:45 Pulse Rate 79 02/13/18 18:45 Respiratory Rate 17 02/13/18 18:45 Blood Pressure 151/71 H 02/13/18 18:45 Pulse Oximetry 96 02/13/18 18:45 Last Documented Vital Signs Temperature 97.8 F 02/13/18 18:45 Pulse Rate 72 02/13/18 21:17 Respiratory Rate 16 02/13/18 21:17 Blood Pressure 147/70 H 02/13/18 21:17 Pulse Oximetry 95 02/13/18 21:17 Medical Decision Making [facility] Narrative Medical decision making narrative: 87-year-old female with a history of hypercholesterolemia, GERD, who presents today with complaints of chest pain with exertion. Patient had 4 episodes of chest pain tonight. She denies any diaphoresis or nausea. The patient reports that it was a tightness across the upper chest brought on by exertion. She was given a 324 mg aspirin. She was also offered morphine however she is refused. EKG shows sinus arrhythmia/PACs. Cardiac enzymes are within normal limits. She will be admitted to the chest pain center for rule out protocol. Patient denies having previous episodes of pain like this in the past. Medical Screen Exam Complete: Yes Emergency Medical Condition: Yes Differential Diagnosis Differential Diagnosis: Angina versus ACS versus peptic ulcer disease versus muscular skeletal pain. Lab Data Result diagrams: 02/13/18 19:25 02/13/18 19:25 Lab Results 02/13/18 02/13/18 Range/Units 19:25 19:25 WBC 6.1 (4.0-11.0) th/mm3 RBC 4.24 (4.00-5.30) mil/mm3 Hgb 11.8 (11.6-15.3) gm/dL Hct 35.7 (35.0-46.0) % MCV 84.1 (80.0-100.0) fL MCH 27.8 (27.0-34.0) pg MCHC 33.0 (32.0-36.0) % RDW 17.9 H (11.6-17.2) % Plt Count 138 L (150-450) th/mm3 MPV 9.0 (7.0-11.0) fL Neut % (Auto) 73.4 H (16.0-70.0) % Lymph % (Auto) 15.2 (9.0-44.0) % [place] % (Auto) 8.5 H (0.0-8.0) % Eos % (Auto) 1.4 (0.0-4.0) % Baso % (Auto) 1.5 (0.0-2.0) % Neut # (Auto) 4.5 (1.8-7.7) th/mm3 Lymph # (Auto) 0.9 L (1.0-4.8) th/mm3 [place] # (Auto) 0.5 (0.0-0.9) th/mm3 Eos # (Auto) 0.1 (0.0-0.4) th/mm3 Baso # (Auto) 0.1 (0.0-0.2) th/mm3 WBC Differential . Differential Comment Auto diff final Sodium 141 (136-145) meq/L Potassium 4.0 (3.5-5.1) meq/L Chloride 106 (98-107) meq/L Carbon Dioxide 26.9 (21.0-32.0) meq/L Anion Gap 8 (5-15) meq/L BUN 22 H (7-18) mg/dL Creatinine 0.92 (0.50-1.00) mg/dL Estimated GFR 58 L (>89) mL/min Random Glucose 114 H (74-106) mg/dL Calcium 8.6 (8.5-10.1) mg/dL Total Bilirubin 0.2 (0.2-1.0) mg/dL AST 53 H (15-37) U/L ALT 38 (10-53) U/L Alkaline Phosphatase 55 (45-117) U/L Total Creatine Kinase 51 (26-192) U/L Troponin I Less than 0.02 L (0.02-0.05) ng/mL Total Protein 6.0 L (6.4-8.2) g/dL Albumin 2.8 L (3.4-5.0) g/dL Imaging Data Radiologist's impression: Chest X-Ray 02/13/18 19:16 CONCLUSION: No acute cardiopulmonary disease identified. Discharge Plan Discharge Disposition Patient Disposition: 30 Still Patient Discharge Details Diagnosis: Chest pain, GERD (gastroesophageal reflux disease), Hypercholesterolemia Physicians Team ED Provider: Rico Bennett Primary Care Provider: UNKNOWN, Attending Provider: Brock Sadler Discharge Interventions Interventions: ED Discharge Assessment Last Done: 02/13/18 21:56 Status ED Status: Left Department Discharge Information Discharge Date/Time: 02/13/18 21:56
[2018-02-13 19:39] LABS: Baso # (Auto) 0.1 th/mm3 (0.0-0.2); Baso % (Auto) 1.5 % (0.0-2.0); Eos # (Auto) 0.1 th/mm3 (0.0-0.4); Eos % (Auto) 1.4 % (0.0-4.0); Hematocrit 35.7 % (35.0-46.0); Hemoglobin 11.8 gm/dL (11.6-15.3); Lymph # (Auto) 0.9 th/mm3 (1.0-4.8); Lymph % (Auto) 15.2 % (9.0-44.0); Mean Corpuscular Hemoglobin 27.8 pg (27.0-34.0); Mean Corpuscular Volume 84.1 fL (80.0-100.0); Mono # (Auto) 0.5 th/mm3 (0.0-0.9); Mono % (Auto) 8.5 % (0.0-8.0); Neut # (Auto) 4.5 th/mm3 (1.8-7.7); Neut % (Auto) 73.4 % (16.0-70.0); Platelet Count 138 th/mm3 (150-450); Red Blood Count 4.24 mil/mm3 (4.00-5.30); Red Cell Distribution Width 17.9 % (11.6-17.2); White Blood Count 6.1 th/mm3 (4.0-11.0)
--- NOTE | 2018-02-13 19:53 | XR ---
EXAM DATE: 02/13/2018 7:32 PM EDT AGE/SEX: 87 years / Female INDICATIONS: Chest pain and shortness of breath. CLINICAL DATA: This is the patient's initial encounter. Patient reports that signs and symptoms have been present for 2 days and indicates a pain score of 4/10. MEDICAL/SURGICAL HISTORY: Hypertension. None. COMPARISON: [facility] [place], CHEST PA & LAT, 03/13/2016. . FINDINGS: Single AP view the chest The lungs are clear. Cardiomediastinal silhouette within normal limits. No evidence of pleural effusion or pneumothorax. CONCLUSION: No acute cardiopulmonary disease identified. Electronically signed by: Edison Norwood MD 02/13/2018 7:52 PM EDT
[2018-02-13 20:05] LABS: Albumin 2.8 g/dL (3.4-5.0); Anion Gap 8 meq/L (5-15); Aspartate Aminotransferase 53 U/L (15-37); Blood Urea Nitrogen 22 mg/dL (7-18); Calcium 8.6 mg/dL (8.5-10.1); Carbon Dioxide 26.9 meq/L (21.0-32.0); Chloride 106 meq/L (98-107); Glomerular Filtration Rate 58 mL/min (>89); Glucose,Random 114 mg/dL (74-106); Sodium 141 meq/L (136-145)
[2018-02-13 20:06] LABS: Alanine Aminotransferase 38 U/L (10-53)
[2018-02-13 20:09] LABS: Alkaline Phosphatase 55 U/L (45-117)
[2018-02-13] MEDS ORDERED: Morphine Sulfate Inj 2 MG/ML Vial IV.PUSH ONE (20:18)
[2018-02-13 20:19] LABS: Creatine Kinase 51 U/L (26-192)
--- NOTE | 2018-02-13 21:53 | ECG ---
Date Performed: 02/13/2018 Time Performed: 19:05:31 PTAGE: 87 years EKG: Sinus rhythm WITH OCCASIONAL SUPRAVENTRICULAR PREMATURE COMPLEXES LOW QRS VOLTAGE IN PRECORDIAL LEADS BORDERLINE ECG PREVIOUS TRACING : 12/08/2017 13.40 DOCTOR: Rubina Fuller Interpretating Date/Time 02/13/2018 21:52:28
[2018-02-13 23:15] LABS: Creatine Kinase 68 U/L (26-192)
[2018-02-14 07:34] VITALS: O2SAT 93
--- NOTE | 2018-02-14 11:20 | P.HPCA ---
History of Present Illness Primary Care Physician: UNKNOWN Chief Complaint: Chest pain History of Present Illness: This is a 87-year-old female history of hyperlipidemia that presents to ED with complaint of 5 episodes of intermittent chest discomfort that began yesterday. First episode began while she was going through some positions of a recently sister. It lasted couple to 3 minutes. It recurred while driving home. It occurred 2 more times at home and at that point decided to seek treatment. [facility] was called. She is brought to the ED and it occurred one more time also lasting just 2-3 minutes. Denies associated shortness of breath, nausea, or diaphoresis. Cannot recall any recent stress test. Currently denies chest discomfort. History of hyperlipidemia and GERD. Also history of neuropathy in her feet. Denies hypertension, diabetes, and known CAD. Her father had CAD. Essentially non-smoker, states she has not smoked in 60 years. She is . - Diagnosis (1) Chest pain (2) GERD (gastroesophageal reflux disease) (3) Hypercholesterolemia PMFSH - History History Provided By: Patient - Medical History Medical History: Medical History (Last Updated 02/13/18 @ 18:55 by Teressa Ortiz) Hypercholesteremia (Acute) Obesity (Acute) Joint pain (Acute) Hypotension (Acute) GERD (gastroesophageal reflux disease) (Acute) Chondromalacia (Acute) Perea esophagus (Acute) Abdominal pain (Acute) Anemia - Surgical History Surgical History: Surgical History (Last Updated 02/13/18 @ 18:55 by Teressa Ortiz) History of cholecystectomy (Acute) History of appendectomy (Acute) - Tobacco History Second Hand Smoke Exposure: No Smoking Status: Never smoker Tobacco Type: Cigarettes - Alcohol History How Often Do You Have a Drink Containing Alcohol: Never - Substance Use History Substance History: No History of Abuse - Travel History Recent Travel in the [place] Within the Last 8 Weeks: No Recent Travel Out of the Country Within the Last 8 Weeks: No - Immunization History Tetanus Immunization: >5 Years Hx Influenza Vaccine This Season: No Medications and Allergies Active Medications: Active Medications Sodium Chloride (Ns Flush) 2 ml IV.FLUSH UNSCH PRN PRN Reason: FLUSH AFTER USING IV ACCESS Sodium Chloride (Ns Flush) 2 ml IV.FLUSH BID PAMELLA Last Admin: 02/14/18 09:41 Dose: 2 ml Sodium Chloride (Ns Flush) 2 ml IV.FLUSH PRN PRN PRN Reason: FLUSH AFTER USING IV ACCESS Allergies Allergy/AdvReac Type Severity Reaction Status Date / Time amlodipine Allergy Severe WEAKNESS Verified 02/13/18 18:46 ampicillin Allergy Severe HIVES/ITCHI Verified 12/02/17 12:05 NG atorvastatin Allergy Severe WEAKNESS Verified 02/13/18 18:46 bee venom protein (honey bee) Allergy Severe ANAPHALAXIS Verified 02/13/18 18:46 ibuprofen Allergy Severe Hives Verified 02/13/18 18:46 naproxen Allergy Severe Nausea/Vomi Verified 12/02/17 12:05 ting pravastatin Allergy Severe WEAKNESS Verified 02/13/18 18:46 simvastatin Allergy Severe WEAKNESS Verified 02/13/18 18:46 Home Medications Medication Instructions Recorded Confirmed Type calcium citrate-vitamin D3 1 tab PO DAILY 12/02/17 02/13/18 History docusate sodium [Stool Softener] 100 mg PO DAILY PRN 12/02/17 02/13/18 History ezetimibe [Zetia] 10 mg PO DAILY 12/02/17 02/13/18 History ginkgo biloba 120 mg PO DAILY 12/02/17 02/13/18 History oegwmqxt-bcig-cci6-C-jamila-bosw 2 tab PO DAILY 12/02/17 02/13/18 History [Osteo Bi-Flex Triple Strength] melatonin 10 mg PO HS PRN 12/02/17 02/13/18 History multivitamin [Multiple Vitamins] 1 tab PO DAILY 12/02/17 02/13/18 History fyqoc-6q-voy-epa-fish oil-D3 [Fish 1 cap PO DAILY 12/02/17 02/13/18 History Oil-Vit D3] peg 400-propylene glycol (PF) 1 drp OPHTHALMIC (EYE) TID PRN 12/02/17 02/13/18 History [Systane (PF)] ranitidine HCl [Zantac] 300 mg PO DAILY 12/02/17 02/13/18 History terbinafine [Lamisil AT] 1 applic TOPICAL DAILY 12/02/17 02/13/18 History vit B1 [id number]-C-FA [B 1 tab PO DAILY 12/02/17 02/13/18 History Complex w-Vit C] aspirin 81 mg PO DAILY 02/13/18 02/13/18 History Exam Vital signs: Vital Signs 02/13/18 18:45 02/13/18 19:22 02/13/18 19:23 Temperature 97.8 F Pulse Rate 79 76 Respiratory Rate 17 Blood Pressure 151/71 H Pulse Oximetry 96 95 02/13/18 19:49 02/13/18 20:15 02/13/18 21:17 Temperature Pulse Rate 78 72 Respiratory Rate 16 16 Blood Pressure 182/81 H 147/70 H Pulse Oximetry 95 95 95 02/13/18 22:00 02/13/18 23:00 02/13/18 23:55 Temperature Pulse Rate 77 Respiratory Rate 21 Blood Pressure Pulse Oximetry 98 02/14/18 00:00 02/14/18 03:42 02/14/18 07:33 Temperature 98.0 F 98.5 F 98.0 F Pulse Rate 79 59 L 70 Respiratory Rate 18 18 13 Blood Pressure 140/70 142/68 H 137/66 Pulse Oximetry 95 95 93 L 02/14/18 09:00 Temperature Pulse Rate 63 Respiratory Rate Blood Pressure Pulse Oximetry Intake & Output 02/13/18 02/14/18 02/14/18 18:59 06:59 18:59 Weight 198 kg 198 kg 95.2 kg Other: # Voids 2 Date of Last Bowel Movement 02/12/18 Weight On Admission 198 kg Narrative: GENERAL: This is a well-nourished, well-developed patient, in no apparent distress. Patient speaks in clear complete sentences. Patient is pleasant. HEENT: Head is atraumatic and normocephalic. Neck is supple without lymphadenopathy and trachea is midline. No JVD or carotid bruits. CARDIOVASCULAR: Regular rate and rhythm without murmurs, gallops, or rubs. RESPIRATORY: Clear to auscultation. Breath sounds equal bilaterally. No wheezes , rales, or rhonchi. Chest wall is nontender. No use of accessory muscles. GASTROINTESTINAL: Abdomen is nontender, nondistended. Abdomen soft. No obvious pulsatile mass or bruit. No CVA tenderness. Strong femoral pulses bilaterally. Normal bowel sounds in all quadrants. MUSCULOSKELETAL: Patient is moving upper and lower extremities freely. No calf tenderness or edema, no Homans sign. Strong pulses in upper and lower extremities. NEUROLOGICAL: Patient is alert and oriented. Cranial nerves 2-12 are grossly intact. No focal deficits and speech is clear. SKIN: No rash and turgor is normal. Results 02/13/18 19:25 02/13/18 19:25 Cardiac Enzymes 02/13/18 02/13/18 Range/Units 19:25 22:20 AST 53 H (15-37) U/L Troponin I Less than 0.02 L Less than 0.02 L (0.02-0.05) ng/mL CBC 02/13/18 Range/Units 19:25 WBC 6.1 (4.0-11.0) th/mm3 RBC 4.24 (4.00-5.30) mil/mm3 Hgb 11.8 (11.6-15.3) gm/dL Hct 35.7 (35.0-46.0) % Plt Count 138 L (150-450) th/mm3 Neut # (Auto) 4.5 (1.8-7.7) th/mm3 Lymph # (Auto) 0.9 L (1.0-4.8) th/mm3 [place] # (Auto) 0.5 (0.0-0.9) th/mm3 Eos # (Auto) 0.1 (0.0-0.4) th/mm3 Baso # (Auto) 0.1 (0.0-0.2) th/mm3 Comprehensive Metabolic Panel 02/13/18 Range/Units 19:25 Sodium 141 (136-145) meq/L Potassium 4.0 (3.5-5.1) meq/L Chloride 106 (98-107) meq/L Carbon Dioxide 26.9 (21.0-32.0) meq/L BUN 22 H (7-18) mg/dL Creatinine 0.92 (0.50-1.00) mg/dL Calcium 8.6 (8.5-10.1) mg/dL AST 53 H (15-37) U/L ALT 38 (10-53) U/L Alkaline Phosphatase 55 (45-117) U/L Total Protein 6.0 L (6.4-8.2) g/dL Albumin 2.8 L (3.4-5.0) g/dL Intake and Output 02/13/18 02/14/18 02/14/18 22:59 06:59 14:59 Other: # Voids 2 Date of Last Bowel Movement 02/12/18 Weight 198 kg 198 kg 95.2 kg Weight On Admission 198 kg Patient Weight 02/15/18 06:59 Weight 95.2 kg EKG interpretations - EKG EKG shows: sinus rhythm (EKGs are sinus rhythm with no significant ST segment depressions or elevations. There are PACs noted.) Caprini VTE Risk Assessment Caprini VTE Risk Assessment: Moderate/High Risk (score >= 2) Caprini Risk Assessment Model: Point Value = 1 Point Value = 2 Point Value = 3 Point Value = 5 Age 41-60 Minor surgery BMI > 25 kg/m2 Swollen legs Varicose veins or History of unexplained or recurrent spontaneous Oral contraceptives or hormone replacement Sepsis (< 1 month) Serious lung disease, including pneumonia (< 1 month) Abnormal pulmonary function Acute myocardial infarction Congestive heart failure (< 1 month) History of inflammatory bowel disease Medical patient at bed rest Age 61-74 Arthroscopic surgery Major open surgery (> 45 min) Laparoscopic surgery (> 45 min) Malignancy Confined to bed (> 72 hours) Immobilizing plaster cast Central venous access Age >= 75 History of VTE Family history of VTE Factor V Leiden Prothrombin [id number] Lupus anticoagulant Anticardiolipin antibodies Elevated serum homocysteine Heparin-induced thrombocytopenia Other congenital or acquired thrombophilia Stroke (< 1 month) Elective arthroplasty Hip, pelvis, or leg fracture Acute spinal cord injury (< 1 month) Prophylaxis Regimen: Total Risk Factor Score Risk Level Prophylaxis Regimen 0-1 Low Early ambulation 2 Moderate Order ONE of the following: *Sequential Compression Device (SCD) *Heparin 5000 units SQ BID 3-4 Higher Order ONE of the following medications: *Heparin 5000 units SQ TID *Enoxaparin/Lovenox 40 mg SQ daily (WT < 150 kg, CrCl > 30 mL/min) *Enoxaparin/Lovenox 30 mg SQ daily (WT < 150 kg, CrCl > 10-29 mL/min) *Enoxaparin/Lovenox 30 mg SQ BID (WT < 150 kg, CrCl > 30 mL/min) AND/OR *Sequential Compression Device (SCD) 5 or more Highest Order ONE of the following medications: *Heparin 5000 units SQ TID (Preferred with Epidurals) *Enoxaparin/Lovenox 40 mg SQ daily (WT < 150 kg, CrCl > 30 mL/min) *Enoxaparin/Lovenox 30 mg SQ daily (WT < 150 kg, CrCl > 10-29 mL/min) *Enoxaparin/Lovenox 30 mg SQ BID (WT < 150 kg, CrCl > 30 mL/min) AND *Sequential Compression Device (SCD) Assessment and Plan - Assessment (1) Chest pain Code(s): R07.9 - Chest pain, unspecified Status: Acute (2) GERD (gastroesophageal reflux disease) Code(s): K21.9 - Gastro-esophageal reflux disease without esophagitis Status: Acute (3) Hypercholesterolemia Code(s): E78.00 - Pure hypercholesterolemia, unspecified Status: Acute - Plan * Chest pain: Patient has had cardiac enzymes and EKGs for ruling out purposes. She has been seen by Dr. Sadler cardiology in the chest pain center and will undergo a Lexiscan. Patient will be discharged home if her stress test is nonischemic with instructions to follow-up with PCP. Return to ED for interval issues. * Hyperlipidemia: Continue medication. * GERD: Continue medication. Patient is stable at this time. She is agreeable to this plan. H&P: Quality - VTE Deep Vein Thrombosis/Pulmonary Embolism Present on Admission: No (1) Chest pain Qualifiers: Chest pain type: unspecified Qualified Code(s): R07.9 - Chest pain, unspecified (2) GERD (gastroesophageal reflux disease) Qualifiers: Esophagitis presence: esophagitis presence not specified Qualified Code(s): K21.9 - Gastro-esophageal reflux disease without esophagitis
[2018-02-14 12:05] VITALS: BP 116/78; RESP 15; TEMP 97.7
[2018-02-14] MEDS ORDERED: Regadenoson Inj 0.4 MG/5 ML Syringe IV.PUSH ONE (13:13)
[2018-02-14 13:18] VITALS: PULSE 75
[2018-02-14 13:19] LABS: Creatine Kinase 35 U/L (26-192)
--- NOTE | 2018-02-14 14:14 | ECG ---
Date Performed: 02/14/2018 Time Performed: 02:11:03 PTAGE: 87 years EKG: Sinus rhythm WITH FREQUENT SUPRAVENTRICULAR PREMATURE COMPLEXES ABNORMAL ECG PREVIOUS TRACING : 02/13/2018 23.50 Since previous tracing, no significant change noted DOCTOR: Brock Sadler Interpretating Date/Time 02/14/2018 14:13:44
--- NOTE | 2018-02-14 14:15 | ECG ---
Date Performed: 02/13/2018 Time Performed: 23:50:24 PTAGE: 87 years EKG: Sinus rhythm WITH OCCASIONAL SUPRAVENTRICULAR PREMATURE COMPLEXES ABNORMAL ECG PREVIOUS TRACING : 02/13/2018 19.05 Since previous tracing, no significant change noted DOCTOR: Brock Sadler Interpretating Date/Time 02/14/2018 14:14:40
--- NOTE | 2018-02-14 14:57 | NM ---
EXAM DATE: 02/14/2018 2:50 PM EDT AGE/SEX: 87 years / Female INDICATIONS:Angina. . Substernal chest pain for one day. CLINICAL DATA: This is the patient's initial encounter. Patient reports that signs and symptoms have been present for 1 day and indicates a pain score of 5/10. MEDICAL/SURGICAL HISTORY: Gastroesophageal reflux disease. Appendectomy. Cholecystectomy. COMPARISON: No prior exams available for comparison. DOSE: 11 mCi Tc 99m Myoview at rest 35 mCi [id number] at stress 0.4 mg Lexiscan STRESS SYMPTOMS: Dyspnea. EJECTION FRACTION: 65 % TECHNIQUE: The patient underwent pharmacologic stress with infusion of prescribed dose. Continuous ECG tracing was monitored during stress. Gated SPECT imaging was performed after stress and conventi onal SPECT imaging was performed at rest. The examination was performed on a SPECT/CT scanner, both attenuation and non-corrected datasets were reviewed. FINDINGS: Distribution: The maximum perfused segment at stress is in the anterior wall. Perfusion Study: The pattern of perfusion at stress is within normal limits. Gated Study: Area of hypokinesia involving the inferior wall. No dyskinesia observed.. The ejection fraction is calculated at 65%. RISK CATEGORY: Low (<1% Annual Motality Rate) CONCLUSION: 1. No reversible defects observed to suggest acute ischemia. Electronically signed by: Jacob Forde MD 02/14/2018 2:55 PM EDT
--- NOTE | 2018-02-16 16:57 | TR ---
Date Performed: 02/14/2018 Time Performed: 13:53:07 DOCTOR: Nicole Law DRUG LIST: CLINICAL HISTORY: CHEST PAIN REASON FOR TEST: CHEST PAIN REASON FOR ENDING: OBSERVATION: CONCLUSION: Lexiscan stress test was performed under standard four minute protocol. Radionucl[place] e was injected one minute prior to ending the test. No electrocardiographic abormalities were present to suggest ischemia. Nuclear imaging and interpretation are pending. COMMENTS: no ischemia
== END 2018-02-14 16:28 | disposition home or self-care (01) ==
LOC: NEDA 18:39 → NEPE 18:39 → NEPFCDU 21:56
DX: R94.31 Abnormal electrocardiogram [ECG] [EKG]; R07.9 Chest pain, unspecified; Z88.6 Allergy status to analgesic agent; F17.210 Nicotine dependence, cigarettes, uncomplicated; E78.5 Hyperlipidemia, unspecified; K21.9 Gastro-esophageal reflux disease without esophagitis; E78.00 Pure hypercholesterolemia, unspecified; Z82.49 Family history of ischemic heart disease and other diseases of the circulatory system; Z88.8 Allergy status to other drugs, medicaments and biological substances; Z79.82 Long term (current) use of aspirin; Z90.49 Acquired absence of other specified parts of digestive tract; I10 Essential (primary) hypertension; Z88.0 Allergy status to penicillin; K22.70 Barrett's esophagus without dysplasia